=== PATIENT | female | born 1955 | race Caucasian/White ===

== ENCOUNTER → 2017-05-22 | Outpatient (CLI) | payer OTHER | END | disposition home or self-care (01) | LOC: C.PAPS 13:29 | PROVIDERS: ATTEND Obstetrics & Gynecology | DX: N87.0 Mild cervical dysplasia (principal); N95.2 Postmenopausal atrophic vaginitis ==

== ENCOUNTER 2021-09-16 09:27 | Inpatient (IN) ==
[2021-09-16] MEDS ORDERED: CEFEPIME 2,000 MG/20 ML VIAL IV STA (09:50)
--- NOTE | 2021-09-16 09:56 | Emergency Department Note ---
History of Present Illness General Chief complaint: GI Assessment Stated complaint: ILLNESS Time Seen by Provider: 09/16/21 09:43 History of Present Illness 66-year-old female presents to the ED with a chief complaint of generalized weakness and fatigue. Her symptoms started on Monday evening. She had some di arrhea this morning. The patient reports only 1 episode of diarrhea. She states that her body feels tired and fatigued and achy. That is the symptom that bothers her the most. She took some Tylenol at 3 AM. She does report that some nephews had influenza A recently. Denies a cough or upper respiratory symptoms denies urinary symptoms. No abdominal pains. No shortness of breath. No additional complaints. EMS found her to have a fever of 101.9. Here it is 37.9. EMS did give some Zofran. No additional complaints this time. Home Medications Medication Instructions Recorded Confirmed Type aspirin 81 mg tablet,delayed 81 mg PO QAM 10/29/20 09/16/21 History release azelastine 137 mcg (0.1 %) nasal 1 spray INTRANASAL BID 10/29/20 09/16/21 History spray aerosol cetirizine 10 mg tablet 10 mg PO QAM 10/29/20 09/16/21 History felodipine 5 mg tablet,extended 5 mg PO QAM 10/29/20 09/16/21 History release 24 hr fluoxetine 40 mg capsule 40 mg PO QAM 10/29/20 09/16/21 History fluticasone propionate 50 1 - 2 spray INTRANASAL DAILY 10/29/20 09/16/21 History mcg/actuation nasal spray,suspension metoprolol succinate 50 mg 50 mg PO QAM 10/29/20 09/16/21 History tablet,extended release 24 hr pantoprazole 40 mg tablet,delayed 40 mg PO BID 10/29/20 09/16/21 History release (Protonix) acetaminophen 500 mg tablet 1,000 mg PO Q6H PRN 09/16/21 09/16/21 History (Tylenol Extra Strength) atorvastatin 40 mg tablet 40 mg PO DAILY 09/16/21 09/16/21 History conjugated estrogens 0.625 mg/gram 1 applic VAGINAL [id number] 09/16/21 09/16/21 History vaginal cream (Premarin) metformin 1,000 mg tablet 1,000 mg PO BID 09/16/21 09/16/21 History montelukast 10 mg tablet 10 mg PO DAILY 09/16/21 09/16/21 History Allergies Allergy/AdvReac Type Severity Reaction Status Date / Time lisinopril Allergy Intermediate Cough Verified 09/16/21 11:51 morphine Allergy Intermediate Rash Verified 09/16/21 11:51 Sulfa (Sulfonamide Allergy Intermediate Rash Verified 09/16/21 11:51 Antibiotics) Tetracyclines Allergy Intermediate Gastrointestinal Verified 09/16/21 11:51 Upset Past Med/Surg History Medical History Anxiety Arthritis Cardiac murmur dx age 12 GERD (gastroesophageal reflux disease) Hyperlipidemia Hypertension Seasonal allergies Surgical History H/O basal cell carcinoma excision nose H/O section x1 H/O exploratory laparotomy H/O LEEP History of carpal tunnel release bilat History of cataract surgery History of colonoscopy History of esophagogastroduodenoscopy (EGD) History of hysterectomy History of tooth extraction S/P tonsillectomy and adenoidectomy Status post trigger finger release x3 Family History Aunt Colon cancer Mother Diabetes Social History Smoking Status: Never smoker Second Hand Exposure: No; Hx Alcohol Use: No Hx Substance Use: No Preferred Language: Slovak Communication Ability: Effective Director Of Investigations Required: No Beliefs That Will Affect Care: None Current Living Situation: Alone Feels Safe at Home: Yes Assistive Devices: Glasses Review of Systems A total of 10 systems reviewed and were otherwise negative Physical Exam Vital Signs Vital Signs - 24 hr 09/16/21 09:36 09/16/21 09:42 09/16/21 09:45 Temperature 37.9 C H Temperature Source Oral Pulse Rate 126 H 126 H 127 H Pulse Rate [Apical] Pulse Rate from SpO2 Sensor 126 H Respiratory Rate 32 H 43 H 40 H Respiratory Effort / Characteristics Non-Labored Respiratory Depth Normal Respiratory Pattern Blood Pressure 144/69 H Blood Pressure [Right Arm] Blood Pressure Mean 94 Blood Pressure Mean [Right Arm] Pulse Oximetry 91 93 Oxygen Delivery Method Room Air Oxygen Flow Rate Sepsis Recent Fever Within 48 Hours Yes Sepsis New/Unexplained Change in Mental Status No Sepsis Action Taken by Nursing No Action Required 09/16/21 09:50 09/16/21 10:00 09/16/21 10:05 Temperature Temperature Source Pulse Rate 129 H Pulse Rate [Apical] 133 H Pulse Rate from SpO2 Sensor Respiratory Rate 30 H 30 H 31 H Respiratory Effort / Characteristics Non-Labored Spontaneous Labored Non-Labored Respiratory Depth Normal Respiratory Pattern Tachypnea Blood Pressure Blood Pressure [Right Arm] 147/71 H Blood Pressure Mean Blood Pressure Mean [Right Arm] 96 Pulse Oximetry 93 94 Oxygen Delivery Method Room Air Room Air Oxygen Flow Rate Sepsis Recent Fever Within 48 Hours Sepsis New/Unexplained Change in Mental Status Sepsis Action Taken by Nursing 09/16/21 10:13 09/16/21 10:15 09/16/21 10:20 Temperature Temperature Source Pulse Rate 131 H 131 H Pulse Rate [Apical] 138 H Pulse Rate from SpO2 Sensor 132 H 131 H Respiratory Rate 32 H 45 H Respiratory Effort / Characteristics Non-Labored Respiratory Depth Normal Respiratory Pattern Tachypnea Blood Pressure 147/71 H 138/71 Blood Pressure [Right Arm] 138/71 Blood Pressure Mean 96 93 Blood Pressure Mean [Right Arm] 93 Pulse Oximetry 93 94 89 L Oxygen Delivery Method Room Air Room Air Oxygen Flow Rate Sepsis Recent Fever Within 48 Hours Sepsis New/Unexplained Change in Mental Status Sepsis Action Taken by Nursing 09/16/21 10:30 09/16/21 10:45 09/16/21 10:46 Temperature Temperature Source Pulse Rate 138 H Pulse Rate [Apical] 133 H Pulse Rate from SpO2 Sensor 138 H 132 H 128 H Respiratory Rate 26 H 24 50 H Respiratory Effort / Characteristics Spontaneous Labored Respiratory Depth Respiratory Pattern Blood Pressure 136/69 69/52 L 121/67 Blood Pressure [Right Arm] 121/76 Blood Pressure Mean 91 57 85 Blood Pressure Mean [Right Arm] 91 Pulse Oximetry 91 92 94 Oxygen Delivery Method Nasal Cannula Nasal Cannula Oxygen Flow Rate 2 2 Sepsis Recent Fever Within 48 Hours Sepsis New/Unexplained Change in Mental Status Sepsis Action Taken by Nursing 09/16/21 10:50 09/16/21 11:00 09/16/21 11:10 Temperature Temperature Source Pulse Rate 135 H 136 H Pulse Rate [Apical] Pulse Rate from SpO2 Sensor 136 H 139 H Respiratory Rate 41 H 36 H Respiratory Effort / Characteristics Respiratory Depth Respiratory Pattern Blood Pressure 136/63 Blood Pressure [Right Arm] Blood Pressure Mean 87 Blood Pressure Mean [Right Arm] Pulse Oximetry 93 94 95 Oxygen Delivery Method Nasal Cannula Oxygen Flow Rate 3 Sepsis Recent Fever Within 48 Hours Sepsis New/Unexplained Change in Mental Status Sepsis Action Taken by Nursing 09/16/21 11:15 09/16/21 11:20 09/16/21 11:30 Temperature Temperature Source Pulse Rate 135 H 134 H 134 H Pulse Rate [Apical] Pulse Rate from SpO2 Sensor 135 H 133 H 133 H Respiratory Rate 26 H 25 H 27 H Respiratory Effort / Characteristics Respiratory Depth Respiratory Pattern Blood Pressure 135/70 129/69 Blood Pressure [Right Arm] Blood Pressure Mean 91 89 Blood Pressure Mean [Right Arm] Pulse Oximetry 95 93 93 Oxygen Delivery Method Oxygen Flow Rate Sepsis Recent Fever Within 48 Hours Sepsis New/Unexplained Change in Mental Status Sepsis Action Taken by Nursing 09/16/21 11:40 09/16/21 11:45 09/16/21 11:50 Temperature Temperature Source Pulse Rate 133 H 134 H 134 H Pulse Rate [Apical] Pulse Rate from SpO2 Sensor 134 H 134 H 134 H Respiratory Rate 50 H 46 H 47 H Respiratory Effort / Characteristics Respiratory Depth Respiratory Pattern Blood Pressure 133/67 Blood Pressure [Right Arm] Blood Pressure Mean 89 Blood Pressure Mean [Right Arm] Pulse Oximetry 95 93 93 Oxygen Delivery Method Oxygen Flow Rate Sepsis Recent Fever Within 48 Hours Sepsis New/Unexplained Change in Mental Status Sepsis Action Taken by Nursing 09/16/21 12:00 09/16/21 12:10 09/16/21 12:15 Temperature Temperature Source Pulse Rate 132 H 135 H 134 H Pulse Rate [Apical] Pulse Rate from SpO2 Sensor 133 H 136 H 134 H Respiratory Rate 44 H 32 H 54 H Respiratory Effort / Characteristics Respiratory Depth Respiratory Pattern Blood Pressure 125/65 136/75 Blood Pressure [Right Arm] Blood Pressure Mean 85 95 Blood Pressure Mean [Right Arm] Pulse Oximetry 93 92 93 Oxygen Delivery Method Oxygen Flow Rate Sepsis Recent Fever Within 48 Hours Sepsis New/Unexplained Change in Mental Status Sepsis Action Taken by Nursing 09/16/21 12:20 09/16/21 12:30 09/16/21 12:40 Temperature Temperature Source Pulse Rate 137 H 140 H 135 H Pulse Rate [Apical] Pulse Rate from SpO2 Sensor 134 H 140 H 135 H Respiratory Rate 45 H 59 H 56 H Respiratory Effort / Characteristics Respiratory Depth Respiratory Pattern Blood Pressure 132/78 Blood Pressure [Right Arm] Blood Pressure Mean 96 Blood Pressure Mean [Right Arm] Pulse Oximetry 93 91 92 Oxygen Delivery Method Oxygen Flow Rate Sepsis Recent Fever Within 48 Hours Sepsis New/Unexplained Change in Mental Status Sepsis Action Taken by Nursing 09/16/21 12:45 09/16/21 12:50 09/16/21 12:52 Temperature Temperature Source Pulse Rate 134 H 137 H 133 H Pulse Rate [Apical] Pulse Rate from SpO2 Sensor 135 H 137 H Respiratory Rate 42 H 33 H Respiratory Effort / Characteristics Respiratory Depth Respiratory Pattern Blood Pressure 106/62 106/62 Blood Pressure [Right Arm] Blood Pressure Mean 76 Blood Pressure Mean [Right Arm] Pulse Oximetry 93 92 Oxygen Delivery Method Oxygen Flow Rate Sepsis Recent Fever Within 48 Hours Sepsis New/Unexplained Change in Mental Status Sepsis Action Taken by Nursing 09/16/21 13:00 09/16/21 13:10 09/16/21 13:15 Temperature 39.2 C H Temperature Source Pulse Rate 114 H 122 H 124 H Pulse Rate [Apical] Pulse Rate from SpO2 Sensor 114 H 122 H 126 H Respiratory Rate 43 H 58 H 35 H Respiratory Effort / Characteristics Respiratory Depth Respiratory Pattern Blood Pressure 113/80 123/75 Blood Pressure [Right Arm] Blood Pressure Mean 91 91 Blood Pressure Mean [Right Arm] Pulse Oximetry 94 90 90 Oxygen Delivery Method Oxygen Flow Rate Sepsis Recent Fever Within 48 Hours Sepsis New/Unexplained Change in Mental Status Sepsis Action Taken by Nursing 09/16/21 13:20 09/16/21 13:30 09/16/21 13:48 Temperature Temperature Source Pulse Rate 127 H 128 H Pulse Rate [Apical] Pulse Rate from SpO2 Sensor 126 H 128 H Respiratory Rate 16 24 54 H Respiratory Effort / Characteristics Labored Other Respiratory Depth Respiratory Pattern Blood Pressure Blood Pressure [Right Arm] Blood Pressure Mean Blood Pressure Mean [Right Arm] Pulse Oximetry 90 88 L 90 Oxygen Delivery Method Nasal Cannula Oxygen Flow Rate 2 Sepsis Recent Fever Within 48 Hours Sepsis New/Unexplained Change in Mental Status Sepsis Action Taken by Nursing 09/16/21 13:50 09/16/21 14:00 09/16/21 14:10 Temperature Temperature Source Pulse Rate 125 H 126 H 125 H Pulse Rate [Apical] Pulse Rate from SpO2 Sensor 125 H 126 H 124 H Respiratory Rate 60 H 56 H 37 H Respiratory Effort / Characteristics Respiratory Depth Respiratory Pattern Blood Pressure 127/72 Blood Pressure [Right Arm] Blood Pressure Mean 90 Blood Pressure Mean [Right Arm] Pulse Oximetry 92 91 93 Oxygen Delivery Method Oxygen Flow Rate Sepsis Recent Fever Within 48 Hours Sepsis New/Unexplained Change in Mental Status Sepsis Action Taken by Nursing 09/16/21 14:15 09/16/21 14:20 Temperature Temperature Source Pulse Rate 125 H 123 H Pulse Rate [Apical] Pulse Rate from SpO2 Sensor 125 H 123 H Respiratory Rate 54 H 18 Respiratory Effort / Characteristics Respiratory Depth Respiratory Pattern Blood Pressure 108/57 L Blood Pressure [Right Arm] Blood Pressure Mean 74 Blood Pressure Mean [Right Arm] Pulse Oximetry 94 93 Oxygen Delivery Method Oxygen Flow Rate Sepsis Recent Fever Within 48 Hours Sepsis New/Unexplained Change in Mental Status Sepsis Action Taken by Nursing CONSTITUTIONAL/VITAL SIGNS: Reviewed / noted above. GENERAL: Non-toxic in appearance. INTEGUMENTARY: Warm, dry, and [place]. HEAD: Normocephalic. EYES: without scleral icterus or trauma. ENT/OROPHARYNX: clear and moist. LYMPHADENOPATHY/NECK: Is supple without lymphadenopathy or meningismus. RESPIRATORY: Clear to auscultation bilaterally. No increased work of breathing. CARDIOVASCULAR: Regular rate and rhythm. GI/ABDOMEN: Soft and nontender. No organomegaly or pulsatile mass. EXTREMITIES: Warm and well perfused. BACK: No CVA tenderness. NEUROLOGICAL: Intact without focal deficits. PSYCHIATRIC: normal affect. MUSCULOSKELETAL: Normally developed with good muscle tone. TRIAGE NURSING DOCUMENTATION REVIEWED. Course Administered Medications Vancomycin HCl 2,000 mg/ (Sodium Chloride) 540 mls @ 200 mls/hr IV NOW ONE Stop: 09/16/21 15:28 Last Admin: 09/16/21 14:33 Dose: 200 mls/hr Documented by: [id number] Potassium Chloride (K Robert / Wtr) 10 meq in 100 mls @ 100 mls/hr IV ONE ONE; Protocol Stop: 09/16/21 15:04 Last Admin: 09/16/21 14:33 Dose: 100 mls/hr Documented by: [id number] Discontinued Medications Aspirin (Aspirin Chew 324 Mg) 324 mg PO NOW STA Stop: 09/16/21 12:29 Last Admin: 09/16/21 12:53 Dose: 324 mg Documented by: [id number] Furosemide (Furosemide 40 Mg/4 Ml Vial) 40 mg IV ONE ONE Stop: 09/16/21 14:06 Last Admin: 09/16/21 14:34 Dose: 40 mg Documented by: [id number] Sodium Chloride (Nss 1000ml) 1,000 mls @ 999 mls/hr IV .Q1H1M NANCY Stop: 09/16/21 10:52 Last Infusion: 09/16/21 10:21 Dose: 0 mls/hr Documented by: [id number] Admin: 09/16/21 09:30 Dose: 999 mls/hr Documented by: [id number] Sodium Chloride (Nss 1000ml) 1,000 mls @ 999 mls/hr IV .Q1H1M NANCY Stop: 09/16/21 11:59 Last Infusion: 09/16/21 13:32 Dose: 0 mls/hr Documented by: [id number] Admin: 09/16/21 10:19 Dose: 999 mls/hr Documented by: [id number] Cefepime HCl (Maxipime) 2,000 mg in 20 mls @ 5 mls/min IV NOW STA; Protocol Stop: 09/16/21 09:53 Last Admin: 09/16/21 10:09 Dose: 5 mls/min Documented by: [id number] Ioversol (Optiray 320 125ml) 120 ml IV ONCE ONE Stop: 09/16/21 13:49 Last Admin: 09/16/21 13:48 Dose: 120 ml Documented by: [id number] Metoprolol Tartrate (Metoprolol Tartrate 1 Mg/Ml Vial) 5 mg IV NOW STA Stop: 09/16/21 12:29 Last Admin: 09/16/21 12:52 Dose: 5 mg Documented by: [id number] Potassium Chloride (Potassium Chloride 10 Meq Tabcr) 20 meq PO NOW STA Stop: 09/16/21 14:06 Last Admin: 09/16/21 14:34 Dose: 20 meq Documented by: [id number] Critical Care Time Critical Care Time: Yes Total Critical Care Time: 35 I have personally spent 30 minutes of critical care time in the direct management of this patient. This includes bedside care, interpretation of diagnostic studies, and testing, discussion with consultants, patient, and family members, and other required patient management activities. This 30 minutes is in excess of all separately billable procedures. Medical Decision Making Differential Diagnosis Differential includes viral illness, influenza, streptococcal pharyngitis, meningitis, pneumonia, sinusitis, UTI, pyelonephritis, otitis media. Medical Records Attestation: I reviewed the patient's medical records. Home Medications Current Medication List: was personally reviewed by me Laboratory Data Attestation: I reviewed the patient's lab results. Result diagrams: 09/16/21 09:30 09/16/21 09:30 Lab Results 09/16/21 09/16/21 09/16/21 Range/Units 09:30 09:30 09:30 WBC 11.54 H (4.8-10.8) K/uL RBC 4.49 (4.2-5.4) M/uL Hgb 12.4 (12.0-16.0) g/dL Hct 37.2 (37-47) % MCV 82.9 (80-100) fL MCH 27.6 (25-34) pg MCHC 33.3 (32-36) g/dL RDW Std Deviation 43.3 (36.4-46.3) fL RDW Coeff of [place] 14.1 (11.5-14.5) % Plt Count 181 (130-400) K/uL MPV 10.8 H (7.4-10.4) fL Immature Gran % (Auto) 0.2 % Neut % (Auto) 89.6 % Lymph % (Auto) 3.9 % [place] % (Auto) 6.2 % Eos % (Auto) 0.0 % Baso % (Auto) 0.1 % Neut # (Auto) 10.35 H (1.4-6.5) K/uL Lymph # (Auto) 0.45 L (1.2-3.4) K/uL [place] # (Auto) 0.71 H (0.11-0.59) K/uL Eos # (Auto) 0.00 (0-0.5) K/uL Baso # (Auto) 0.01 (0-0.2) K/uL Immature Gran # (Auto) 0.02 (0.00-0.02) K/uL PT 12.7 H (9.0-12.0) Seconds INR 1.2 H (0.9-1.1) APTT 28.2 (21.0-31.0) Seconds PTT Ratio 1.0 Sodium 131 L (136-145) mmol/L Potassium 3.0 L (3.5-5.1) mmol/L Chloride 97 L (98-107) mmol/L Carbon Dioxide 18 L (21-32) mmol/L Anion Gap 16 H (3-11) BUN 18 (6-23) mg/dl Creatinine 0.86 (0.6-1.2) mg/dl Est Cr Clr Drug Dosing 57.2 ml/min Est GFR ( Amer) 81.6 ml/min Est GFR (Non-Af Amer) 70.4 ml/min BUN/Creatinine Ratio 20.9 H (10-20) Glucose 208 H (70-99(Fasting)) mg/dl Lactate (0.4-2.0) mmol/L Calcium 9.1 (8.5-10.1) mg/dl Magnesium 1.3 L (1.7-2.4) mg/dl Total Bilirubin 1.0 (0.2-1.0) mg/dl AST 51 H (13-39) U/L ALT 39 (7-52) U/L Alkaline Phosphatase 72 (34-104) U/L Troponin I High Sens 1008.5 H* (0-14) pg/ml Total Protein 7.6 (6.0-8.3) gm/dl Albumin 4.1 (3.4-5.0) gm/dl Globulin 3.5 (2.5-4.0) gm/dl Albumin/Globulin Ratio 1.2 (0.9-2) Urine Color Urine Appearance (Clear) Urine pH (4.5-7.5) Ur Specific [place] (1.000-1.030) Urine Protein (Negative) Urine Glucose (UA) (Negative) Urine Ketones (Negative) Urine Blood (Negative) Urine Nitrite (Negative) Urine Bilirubin (Negative) Urine Urobilinogen (Negative) Ur Leukocyte Esterase (Negative) Urine WBC (Auto) (0-5) /hpf Urine RBC (Auto) (0-4) /hpf U Hyaline Cast (Auto) (0-5) /lpf U Epithel Cells (Auto) (0-5) /lpf Urine Bacteria (Auto) (Negative) Urine Yeast SARS-CoV-2 (PCR) (Negative) Influenza Type A (PCR) (Neg) Influenza Type B (PCR) (Neg) RSV (RT-PCR) (Neg) 09/16/21 09/16/21 09/16/21 Range/Units 09:52 10:09 12:00 WBC (4.8-10.8) K/uL RBC (4.2-5.4) M/uL Hgb (12.0-16.0) g/dL Hct (37-47) % MCV (80-100) fL MCH (25-34) pg MCHC (32-36) g/dL RDW Std Deviation (36.4-46.3) fL RDW Coeff of [place] (11.5-14.5) % Plt Count (130-400) K/uL MPV (7.4-10.4) fL Immature Gran % (Auto) % Neut % (Auto) % Lymph % (Auto) % [place] % (Auto) % Eos % (Auto) % Baso % (Auto) % Neut # (Auto) (1.4-6.5) K/uL Lymph # (Auto) (1.2-3.4) K/uL [place] # (Auto) (0.11-0.59) K/uL Eos # (Auto) (0-0.5) K/uL Baso # (Auto) (0-0.2) K/uL Immature Gran # (Auto) (0.00-0.02) K/uL PT (9.0-12.0) Seconds INR (0.9-1.1) APTT (21.0-31.0) Seconds PTT Ratio Sodium (136-145) mmol/L Potassium (3.5-5.1) mmol/L Chloride (98-107) mmol/L Carbon Dioxide (21-32) mmol/L Anion Gap (3-11) BUN (6-23) mg/dl Creatinine (0.6-1.2) mg/dl Est Cr Clr Drug Dosing ml/min Est GFR ( Amer) ml/min Est GFR (Non-Af Amer) ml/min BUN/Creatinine Ratio (10-20) Glucose (70-99(Fasting)) mg/dl Lactate 2.3 H* Cancelled (0.4-2.0) mmol/L Calcium (8.5-10.1) mg/dl Magnesium (1.7-2.4) mg/dl Total Bilirubin (0.2-1.0) mg/dl AST (13-39) U/L ALT (7-52) U/L Alkaline Phosphatase (34-104) U/L Troponin I High Sens (0-14) pg/ml Total Protein (6.0-8.3) gm/dl Albumin (3.4-5.0) gm/dl Globulin (2.5-4.0) gm/dl Albumin/Globulin Ratio (0.9-2) Urine Color Urine Appearance (Clear) Urine pH (4.5-7.5) Ur Specific [place] (1.000-1.030) Urine Protein (Negative) Urine Glucose (UA) (Negative) Urine Ketones (Negative) Urine Blood (Negative) Urine Nitrite (Negative) Urine Bilirubin (Negative) Urine Urobilinogen (Negative) Ur Leukocyte Esterase (Negative) Urine WBC (Auto) (0-5) /hpf Urine RBC (Auto) (0-4) /hpf U Hyaline Cast (Auto) (0-5) /lpf U Epithel Cells (Auto) (0-5) /lpf Urine Bacteria (Auto) (Negative) Urine Yeast SARS-CoV-2 (PCR) NEGATIVE (Negative) Influenza Type A (PCR) Negative (Neg) Influenza Type B (PCR) Negative (Neg) RSV (RT-PCR) Negative (Neg) 09/16/21 09/16/21 Range/Units 12:00 14:05 WBC (4.8-10.8) K/uL RBC (4.2-5.4) M/uL Hgb (12.0-16.0) g/dL Hct (37-47) % MCV (80-100) fL MCH (25-34) pg MCHC (32-36) g/dL RDW Std Deviation (36.4-46.3) fL RDW Coeff of [place] (11.5-14.5) % Plt Count (130-400) K/uL MPV (7.4-10.4) fL Immature Gran % (Auto) % Neut % (Auto) % Lymph % (Auto) % [place] % (Auto) % Eos % (Auto) % Baso % (Auto) % Neut # (Auto) (1.4-6.5) K/uL Lymph # (Auto) (1.2-3.4) K/uL [place] # (Auto) (0.11-0.59) K/uL Eos # (Auto) (0-0.5) K/uL Baso # (Auto) (0-0.2) K/uL Immature Gran # (Auto) (0.00-0.02) K/uL PT (9.0-12.0) Seconds INR (0.9-1.1) APTT (21.0-31.0) Seconds PTT Ratio Sodium (136-145) mmol/L Potassium (3.5-5.1) mmol/L Chloride (98-107) mmol/L Carbon Dioxide (21-32) mmol/L Anion Gap (3-11) BUN (6-23) mg/dl Creatinine (0.6-1.2) mg/dl Est Cr Clr Drug Dosing ml/min Est GFR ( Amer) ml/min Est GFR (Non-Af Amer) ml/min BUN/Creatinine Ratio (10-20) Glucose (70-99(Fasting)) mg/dl Lactate 1.4 (0.4-2.0) mmol/L Calcium (8.5-10.1) mg/dl Magnesium (1.7-2.4) mg/dl Total Bilirubin (0.2-1.0) mg/dl AST (13-39) U/L ALT (7-52) U/L Alkaline Phosphatase (34-104) U/L Troponin I High Sens (0-14) pg/ml Total Protein (6.0-8.3) gm/dl Albumin (3.4-5.0) gm/dl Globulin (2.5-4.0) gm/dl Albumin/Globulin Ratio (0.9-2) Urine Color Dark Yellow Urine Appearance Cloudy A (Clear) Urine pH 5.0 (4.5-7.5) Ur Specific [place] 1.028 (1.000-1.030) Urine Protein 3+ H (Negative) Urine Glucose (UA) Trace H (Negative) Urine Ketones 1+ H (Negative) Urine Blood 3+ H (Negative) Urine Nitrite Negative (Negative) Urine Bilirubin Negative (Negative) Urine Urobilinogen Negative (Negative) Ur Leukocyte Esterase 1+ H (Negative) Urine WBC (Auto) >30 H (0-5) /hpf Urine RBC (Auto) 0-4 (0-4) /hpf U Hyaline Cast (Auto) 1-5 (0-5) /lpf U Epithel Cells (Auto) 20-30 H (0-5) /lpf Urine Bacteria (Auto) 1+ H (Negative) Urine Yeast Not Reportable SARS-CoV-2 (PCR) (Negative) Influenza Type A (PCR) (Neg) Influenza Type B (PCR) (Neg) RSV (RT-PCR) (Neg) Imaging Data Radiologist's Impression: Chest X-Ray 09/16/21 09:50 SINGLE VIEW CHEST CLINICAL HISTORY: Sepsis. FINDINGS: An AP, portable, upright chest radiograph is obtained. No prior studies are available for comparison at the time of dictation. The heart is enlarged noting atherosclerotic calcification of the thoracic aorta. There is mild pulmonary vascular congestion. Scarring/atelectasis is noted at the lung bases. No airspace consolidation or large pleural effusion is identified. No pneumothorax is seen. The skeletal structures are osteopenic. The bony thorax is grossly intact. IMPRESSION: Cardiomegaly with mild pulmonary vascular congestion. ACT 112: Negative or not required by law. Electronically signed by: Vikas Sarkar M.D. 09/16/2021 10:13 AM Abdomen/Pelvis CT 09/16/21 12:28 CT SCAN OF THE ABDOMEN AND PELVIS WITH IV CONTRAST CLINICAL HISTORY: Change in mental status. Tachycardia. COMPARISON STUDY: No priors. TECHNIQUE: Following the IV administration of 120 cc of Optiray 320, CT scan of the abdomen and pelvis is performed from the lung bases to the proximal femora. Images are reviewed in the axial, sagittal, and coronal planes. IV contrast was administered without complication. A dose lowering technique was utilized adhering to the principles of ALARA. There is streak artifact from the right arm which could not be elevated above the abdomen. There is also motion artifact. CT DOSE: 1960.68 mGy.cm FINDINGS: Lung bases: The heart is enlarged and without pericardial effusion. There are trace pleural effusions. Intralobular septal thickening and patchy opacities are present at both lung bases. Liver: The contrast-enhanced liver is enlarged, measuring 20.5 cm in length and demonstrates heterogeneous in attenuation indicating steatosis. Nodularity of the hepatic surface contour suggests early morphological change of cirrhosis. There is no intrahepatic biliary ductal dilatation. The hepatic veins and portal veins are patent. Gallbladder: Unremarkable. Spleen: Normal in size and attenuation. Pancreas: Mildly atrophic and grossly unremarkable. Adrenal glands: Unremarkable. Kidneys: The contrast enhanced kidneys are normal in size and without hydronephrosis. The kidneys enhance symmetrically. Abdominal vasculature: The abdominal aorta is normal in course and caliber noting advanced atherosclerotic calcification. Bowel: There are scattered colonic diverticula without CT evidence of acute diverticulitis. There is no bowel obstruction. The appendix is well-visualized and normal. Peritoneum: There is no intraperitoneal free air or abdominal ascites. There is a small fat-containing umbilical hernia. Lymphadenopathy: None. Pelvic viscera: The bladder is largely decompressed around a Haddad catheter. Foci of gas in the bladder lumen are nonspecific and likely related to instrumentation. The uterus is surgically absent. No adnexal lesion is identified. Skeletal structures: The skeletal structures are osteopenic. The skeletal structures are osteopenic. There is mild lumbosacral spondylosis. No lytic or blastic lesions are seen. IMPRESSION: 1. Cardiomegaly with evidence of congestive failure. 2. Airspace opacities in the lower lobe likely represent pulmonary edema. Correlate clinically for evidence of a superimposed infectious/inflammatory pneumonitis. 3. Trace pleural effusions. 4. No acute infectious or inflammatory findings are identified in the abdomen or pelvis. 5. The liver is enlarged and steatotic. Nodularity of the surface contour suggests early morphologic change of cirrhosis. 6. Scattered colonic diverticula without CT evidence of acute diverticulitis. 7. Additional findings as above. ACT 112: Negative or not required by law. Electronically signed by: Vikas Sarkar M.D. 09/16/2021 1:58 PM Chest CTA 09/16/21 12:28 CT ANGIOGRAPHY OF THE CHEST, PULMONARY EMBOLUS PROTOCOL CLINICAL HISTORY: Shortness of breath. Confusion. COMPARISON STUDY: Chest radiograph performed earlier today. TECHNIQUE: Following IV administration of 120 mL of Optiray, helical axial images of the chest were obtained utilizing the pulmonary embolus protocol. Maximal intensity projections and sagittal and coronal reformats were viewed on an independent 3D workstation. IV contrast was administered without complication. Automated exposure control was utilized for the study. A dose lowering technique was utilized adhering to the principles of ALARA. FINDINGS: No pulmonary emboli are identified although the segmental and subsegmental pulmonary arteries are suboptimally assessed due to respiratory motion. There is no thoracic aortic dissection. Moderate cardiomegaly is noted. There is extensive mitral annular calcification. Mild to moderate coronary artery calcification is present. Central pulmonary arteries are mildly dilated. Main pulmonary artery measures 3.6 cm in caliber. Mildly enlarged mediastinal and bilateral hilar lymph nodes are present. Index right paratracheal lymph node measures 1.4 x 1.4 cm. There are trace bilateral pleural effusions. No pneumothorax is present. Diffuse interlobular septal thickening is present. In addition, there are nodular and groundglass opacities throughout the lungs. Central airways are patent. Lungs are suboptimally assessed due to respiratory motion. No acute fracture or suspicious lesion within the visualized bony thorax. CT of the abdomen and pelvis will be reported separately. IMPRESSION: 1. No pulmonary emboli identified although segmental and subsegmental pulmonary arteries suboptimally assessed due to respiratory motion. 2. Cardiomegaly. Moderate interstitial pulmonary edema. Nodular and groundglass opacities within the lungs likely reflect alveolar pulmonary edema. Trace bilateral pleural effusions. 3. Dilatation of the central pulmonary arteries which raises the possibility of pulmonary arterial hypertension. 4. Mildly enlarged mediastinal and bilateral lymph nodes which may be related to pulmonary edema. ACT 112: Negative or not required by law. Electronically signed by: Dani Briceño M.D. 09/16/2021 1:[address] 09/16/21 12:28 CT head/brain wo con CLINICAL HISTORY: 66 years-old Female with confusion. Acutely altered mental status TECHNIQUE: Multiple axial CT images of the head were obtained without contrast. A dose lowering technique was utilized adhering to the principles of ALARA. COMPARISON: None. FINDINGS: No acute intracranial hemorrhage, midline shift, intracranial mass, hydrocephalus, territorial ischemia or abnormal extra-axial collection. Mild white matter hypodensities are suggestive of chronic microvascular ischemic disease. The calvarium is intact. Prior bilateral lens replacement. The paranasal sinuse s, mastoid air cells, and middle ear cavities are clear. IMPRESSION: No acute intracranial abnormality. ACT 112: Negative or not required by law. The above report was generated using voice recognition software. It may contain grammatical, syntax or spelling errors. Electronically signed by: Ken Harrington M.D. 09/16/2021 1:44 PM ECG Data Attestation: I personally reviewed and interpreted this ECG as follows: Additional Comments: Twelve-lead EKG: Per my interpretation shows a sinus tach at a rate of 126. No ST elevation. No PVCs. Normal QTC. Twelve-lead EKG #2: Per my interpretation shows a sinus tachycardia at a rate of 140. No ST elevation. No PVCs. Normal QTC. MDM Narrative 66-year-old female presents with fever, generalized body aches and fatigue as her primary symptoms. Little diarrhea this morning. Recent exposure to family members with influenza A. Test results showed a twelve-lead EKG with sinus tach at a rate of 126 without acute ischemic changes. This was repeated and her heart rate increased to 140 without ischemic changes. The white blood cell count was slightly elevated. Lactic acid is slightly elevated. Troponin was 1008. Potassium was 3. Glucose is 2 8. Magnesium was 1.3. Chest x-ray showed some vascular congestion. CT scan of the chest shows some moderate pulmonary edema this was after the patient received 2 L normal saline IV for sepsis protocol. There was no pneumonia on the CT scan. No pulmonary embolus. CT scan of the abdomen pelvis did not show acute infectious process or acute ab normality. CT scan of the brain was negative for acute disease. The patient was initially evaluated for fever and tachycardia. She was given 2 L of fluid which likely worsens some pulmonary edema. She was empirically given IV cefepime and vancomycin for her fever. She was given oral and IV potassium for her hypokalemia. Because of the congestive heart failure that ensued with pulmonary edema after IV hydration, she was given IV Lasix 40 mg and also BiPAP. She was given aspirin p.o. for her elevated troponin. Her elevated troponin is likely related to demand ischemia. There was no source for her skin infection. The exact cause of her fever is unclear. She will be seen by the hospitalist for further inpatient management. Impression & Plan Fever, Congestive heart failure, Generalized muscle weakness, Elevated troponi n, Acute hypokalemia, Acute hyperglycemia, Hypomagnesemia Discharge Plan Visit Data Chief Complaint: GI Assessment Stated Complaint: ILLNESS ED Provider: Juan Rivera Discharge Problem: Fever, Congestive heart failure, Generalized muscle weakness, Elevated troponin, Acute hypokalemia, Acute hyperglycemia, Hypomagnesemia Patient Disposition: Being Evaluated by Hospitalist Forms Stand Alone Forms: [facility] Prescriptions Prescriptions: No Action fluoxetine 40 mg Capsule 40 mg PO QAM RF: 0 cetirizine 10 mg Tablet 10 mg PO QAM RF: 0 metoprolol succinate 50 mg Tablet Extended Release 24 Hr 50 mg PO QAM RF: 0 felodipine 5 mg Tablet Extended Release 24 Hr 5 mg PO QAM RF: 0 pantoprazole [Protonix] 40 mg Tablet,Delayed Release (Dr/Ec) 40 mg PO BID RF: 0 azelastine 137 mcg (0.1 %) Aerosol,[place] 1 spray INTRANASAL BID RF: 0 fluticasone propionate 50 mcg/actuation [place],Suspension 1 - 2 spray INTRANASAL DAILY RF: 0 aspirin 81 mg Tablet,Delayed Release (Dr/Ec) 81 mg PO QAM RF: 0 acetaminophen [Tylenol Extra Strength] 500 mg Tablet 1,000 mg PO Q6H PRN (Reason: Headache or pain) RF: 0 atorvastatin 40 mg tablet 40 mg PO DAILY RF: 0 Premarin 0.625 mg/gram cream 1 applic vaginal 2XWK RF: 0 metformin 1,000 mg tablet 1,000 mg PO BID RF: 0 montelukast 10 mg tablet 10 mg PO DAILY RF: 0 Referrals Referrals: Xi Herr DO [Primary Care Provider] -
[2021-09-16] MEDS ORDERED: SODIUM CHLORIDE 0.9% 1000ML 1,000 ML IV SCH ×2 (10:00→11:00)
[2021-09-16 10:06] LABS: Basophils # (auto) 0.01 K/uL (0-0.2); Basophils % (auto) 0.1 %; Hematocrit (blood only) 37.2 % (37-47); Hemoglobin 12.4 g/dL (12.0-16.0); Immature Granulocytes # (auto) 0.02 K/uL (0.00-0.02); Immature Granulocytes % (auto) 0.2 %; Lymphocytes # (auto) 0.45 K/uL (1.2-3.4); Lymphocytes % (auto) 3.9 %; Mean Corpuscular Hemoglobin 27.6 pg (25-34); Mean Corpuscular Hgb Conc 33.3 g/dL (32-36); Mean Corpuscular Volume 82.9 fL (80-100); Mean Platelet Volume 10.8 fL (7.4-10.4); Monocytes # (auto) 0.71 K/uL (0.11-0.59); Monocytes % (auto) 6.2 %; Neutrophils # (auto) 10.35 K/uL (1.4-6.5); Neutrophils % (auto) 89.6 %; Platelet Count 181 K/uL (130-400); RDW Coefficient of Variation 14.1 % (11.5-14.5); RDW Standard Deviation 43.3 fL (36.4-46.3); Red Blood Count 4.49 M/uL (4.2-5.4); White Blood Count 11.54 K/uL (4.8-10.8)
--- NOTE | 2021-09-16 10:14 | XRay Report ---
SINGLE VIEW CHEST CLINICAL HISTORY: Sepsis. FINDINGS: An AP, portable, upright chest radiograph is obtained. No prior studies are available for c omparison at the time of dictation. The heart is enlarged noting atherosclerotic calcification of th e thoracic aorta. There is mild pulmonary vascular congestion. Scarring/atelectasis is noted at the l stacey bases. No airspace consolidation or large pleural effusion is identified. No pneumothorax is seen . The skeletal structures are osteopenic. The bony thorax is grossly intact. IMPRESSION: Cardiomegaly with mild pulmonary vascular congestion. ACT 112: Negative or not required by law. Electronically signed by: Vikas Sarkar M.D. 09/16/2021 10:13 AM
[2021-09-16 10:25] LABS: INR 1.2 (0.9-1.1); Partial Thromboplastin Time 28.2 Seconds (21.0-31.0); Prothrombin Time 12.7 Seconds (9.0-12.0)
[2021-09-16 10:38] LABS: Albumin Globulin Ratio 1.2 (0.9-2); Albumin Level 4.1 gm/dl (3.4-5.0); BUN Creatinine Ratio 20.9 (10-20); Calcium 9.1 mg/dl (8.5-10.1); Creatinine Clr Calc Pharmacy 57.2 ml/min; Est GFR (African American) 81.6 ml/min; Est GFR (Non-African American) 70.4 ml/min; Globulin 3.5 gm/dl (2.5-4.0); Magnesium 1.3 mg/dl (1.7-2.4); Total Protein 7.6 gm/dl (6.0-8.3)
[2021-09-16 10:42] LABS: Troponin I High Sensitivity 1008.5 pg/ml (0-14)
[2021-09-16 12:07] LABS: Influenza A virus by PCR Negative (Neg); Influenza B virus by PCR Negative (Neg); RSV by PCR Negative (Neg); SARS CoV2 RNA(COVID-19) InHosp NEGATIVE (Negative)
[2021-09-16] MEDS ORDERED: METOPROLOL TARTRATE 1 MG/ML VIAL IV STA (12:28)
[2021-09-16] MEDS ORDERED: ASPIRIN CHEW 324 MG PO STA (12:28)
[2021-09-16 12:47] LABS: Appearance Urine Cloudy (Clear); Bilirubin Urine Negative (Negative); Blood Urine 3+ (Negative); Color Urine Dark Yellow; Epithelial Cell Urine Auto 20-30 /lpf (0-5); Glucose Urine UA Trace (Negative); Ketones Urine 1+ (Negative); Leukocyte Esterase Urine 1+ (Negative); Nitrite Urine Negative (Negative); Protein Urine 3+ (Negative); RBC Urine Automated 0-4 /hpf (0-4); Specific Gravity Urine 1.028 (1.000-1.030); Urobilinogen Urine Negative (Negative); WBC Urine Automated >30 /hpf (0-5)
[2021-09-16] MEDS ORDERED: VANCOMYCIN HCL 2,000 MG in SODIUM CHLORIDE 0.9% 500 ML IV ONE (12:47)
[2021-09-16] MEDS ORDERED: VANCOMYCIN CONSULT ACTIVE PRN (12:47)
[2021-09-16 13:39] LABS: Bacteria Urine Automated 1+ (Negative)
--- NOTE | 2021-09-16 13:47 | CT Scan Report ---
CT head/brain wo con CLINICAL HISTORY: 66 years-old Female with confusion. Acutely altered mental status TECHNIQUE: Multiple axial CT images of the head were obtained without contrast. A dose lowering tech nique was utilized adhering to the principles of ALARA. COMPARISON: None. FINDINGS: No acute intracranial hemorrhage, midline shift, intracranial mass, hydrocephalus, territorial ischem ia or abnormal extra-axial collection. Mild white matter hypodensities are suggestive of chronic micr ovascular ischemic disease. The calvarium is intact. Prior bilateral lens replacement. The paranasal sinuses, mastoid air cells, and middle ear cavities are clear. IMPRESSION: No acute intracranial abnormality. ACT 112: Negative or not required by law. The above report was generated using voice recognition software. It may contain grammatical, syntax o r spelling errors. Electronically signed by: Ken Harrington M.D. 09/16/2021 1:44 PM
[2021-09-16] MEDS ORDERED: OPTIRAY 320 125ml IV ONE (13:48)
--- NOTE | 2021-09-16 13:56 | CT Scan Report ---
CT ANGIOGRAPHY OF THE CHEST, PULMONARY EMBOLUS PROTOCOL CLINICAL HISTORY: Shortness of breath. Confusion. COMPARISON STUDY: Chest radiograph performed earlier today. TECHNIQUE: Following IV administration of 120 mL of Optiray, helical axial images of the chest were o btained utilizing the pulmonary embolus protocol. Maximal intensity projections and sagittal and cor onal reformats were viewed on an independent 3D workstation. IV contrast was administered without co mplication. Automated exposure control was utilized for the study. A dose lowering technique was ut ilized adhering to the principles of ALARA. FINDINGS: No pulmonary emboli are identified although the segmental and subsegmental pulmonary arter ies are suboptimally assessed due to respiratory motion. There is no thoracic aortic dissection. Mode rate cardiomegaly is noted. There is extensive mitral annular calcification. Mild to moderate coronar y artery calcification is present. Central pulmonary arteries are mildly dilated. Main pulmonary kee ry measures 3.6 cm in caliber. Mildly enlarged mediastinal and bilateral hilar lymph nodes are presen t. Index right paratracheal lymph node measures 1.4 x 1.4 cm. There are trace bilateral pleural effus ions. No pneumothorax is present. Diffuse interlobular septal thickening is present. In addition, the re are nodular and groundglass opacities throughout the lungs. Central airways are patent. Lungs are suboptimally assessed due to respiratory motion. No acute fracture or suspicious lesion within the vi sualized bony thorax. CT of the abdomen and pelvis will be reported separately. IMPRESSION: 1. No pulmonary emboli identified although segmental and subsegmental pulmonary arteries suboptimally assessed due to respiratory motion. 2. Cardiomegaly. Moderate interstitial pulmonary edema. Nodular and groundglass opacities within the lungs likely reflect alveolar pulmonary edema. Trace bilateral pleural effusions. 3. Dilatation of the central pulmonary arteries which raises the possibility of pulmonary arterial hy pertension. 4. Mildly enlarged mediastinal and bilateral lymph nodes which may be related to pulmonary edema. ACT 112: Negative or not required by law. Electronically signed by: Dani Briceño M.D. 09/16/2021 1:55 PM
--- NOTE | 2021-09-16 13:59 | CT Scan Report ---
CT SCAN OF THE ABDOMEN AND PELVIS WITH IV CONTRAST CLINICAL HISTORY: Change in mental status. Tachycardia. COMPARISON STUDY: No priors. TECHNIQUE: Following the IV administration of 120 cc of Optiray 320, CT scan of the abdomen and pelv is is performed from the lung bases to the proximal femora. Images are reviewed in the axial, sagitta l, and coronal planes. IV contrast was administered without complication. A dose lowering technique w as utilized adhering to the principles of ALARA. There is streak artifact from the right arm which co uld not be elevated above the abdomen. There is also motion artifact. CT DOSE: 1960.68 mGy.cm FINDINGS: Lung bases: The heart is enlarged and without pericardial effusion. There are trace pleural effusions . Intralobular septal thickening and patchy opacities are present at both lung bases. Liver: The contrast-enhanced liver is enlarged, measuring 20.5 cm in length and demonstrates heteroge neous in attenuation indicating steatosis. Nodularity of the hepatic surface contour suggests early m orphological change of cirrhosis. There is no intrahepatic biliary ductal dilatation. The hepatic vei ns and portal veins are patent. Gallbladder: Unremarkable. Spleen: Normal in size and attenuation. Pancreas: Mildly atrophic and grossly unremarkable. Adrenal glands: Unremarkable. Kidneys: The contrast enhanced kidneys are normal in size and without hydronephrosis. The kidneys enh ance symmetrically. Abdominal vasculature: The abdominal aorta is normal in course and caliber noting advanced atheroscle rotic calcification. Bowel: There are scattered colonic diverticula without CT evidence of acute diverticulitis. There is no bowel obstruction. The appendix is well-visualized and normal. Peritoneum: There is no intraperitoneal free air or abdominal ascites. There is a small fat-containin g umbilical hernia. Lymphadenopathy: None. Pelvic viscera: The bladder is largely decompressed around a Haddad catheter. Foci of gas in the bladd er lumen are nonspecific and likely related to instrumentation. The uterus is surgically absent. No a dnexal lesion is identified. Skeletal structures: The skeletal structures are osteopenic. The skeletal structures are osteopenic. There is mild lumbosacral spondylosis. No lytic or blastic lesions are seen. IMPRESSION: 1. Cardiomegaly with evidence of congestive failure. 2. Airspace opacities in the lower lobe likely represent pulmonary edema. Correlate clinically for ev idence of a superimposed infectious/inflammatory pneumonitis. 3. Trace pleural effusions. 4. No acute infectious or inflammatory findings are identified in the abdomen or pelvis. 5. The liver is enlarged and steatotic. Nodularity of the surface contour suggests early morphologic change of cirrhosis. 6. Scattered colonic diverticula without CT evidence of acute diverticulitis. 7. Additional findings as above. ACT 112: Negative or not required by law. Electronically signed by: Vikas Sarkar M.D. 09/16/2021 1:58 PM
[2021-09-16] MEDS ORDERED: POTASSIUM CHLORIDE 10 MEQ TABCR PO STA (14:05)
[2021-09-16] MEDS ORDERED: FUROSEMIDE 40 MG/4 ML VIAL IV ONE (14:05)
[2021-09-16] MEDS ORDERED: POTASSIUM CHLORIDE / WTR 10 MEQ/100 ML PLCT IV ONE (14:05)
--- NOTE | 2021-09-16 14:33 | Electrocardiogram Report ---
Test Reason : Blood Pressure : / mmHG Vent. Rate : 126 BPM Atrial Rate : 126 BPM P-R Int : 138 ms QRS Dur : 080 ms QT Int : 308 ms P-R-T Axes : 073 044 051 degrees QTc Int : 446 ms Poor data quality, interpretation may be adversely affected Sinus tachycardia Possible Left atrial enlargement Borderline ECG No previous ECGs available Confirmed by Jeffy Olmstead ([id number]) on 09/16/2021 2:33:07 PM Referred By: Confirmed By:Jeffy Olmstead
[2021-09-16 15:15] LABS: Procalcitonin 7.53 ng/ml (0-0.5)
[2021-09-16 15:20] LABS: Lyme Ab IgG w/WB Rflx Negative (Negative)
[2021-09-16 15:21] LABS: Lyme Ab IgM w/WB Rflx Negative (Negative)
[2021-09-16 15:29] LABS: iSTAT Arterial Blood Gas HCO3 19 meg/L (19-24); iSTAT Arterial Blood Gas pCO2 27 mmHg (35-46); iSTAT Arterial Blood Gas pH 7.47 (7.35-7.45); iSTAT Arterial Blood Gas pO2 104 mmHg (80-95); iSTAT Carbon Dioxide 20 mmol/L (24-31); iSTAT Hematocrit 34 % (37-47); iSTAT Hemoglobin 11.6 g/dl (12.0-16.0); iSTAT Sodium 136 mmol/L (135-144)
--- NOTE | 2021-09-16 15:31 | History & Physical Report ---
Date of Service September 16, 2021 Assessment & Plan (1) SIRS (systemic inflammatory response syndrome): (2) Pulmonary edema: (3) Hypoxia: (4) Respiratory alkalosis: (5) Elevated troponin: (6) Generalized muscle weakness: (7) Hypomagnesemia: (8) Hypokalemia: (9) T2DM (type 2 diabetes mellitus): (10) Hypertension: Plan: This is a 66-year-old female who has significant past medical history of T2DM, HTN, HLD, GERD, fatty liver who presents to ED secondary to fever and weakness x2 days. Pt meets SIRS Criteria 2/2 to elevated temperature and tachycardia Pt also likely to have tachycardia due to missing her last two days of metoprolol No clear source of infection at this time, ? Urine vs Viral Blood and urine cultures pending She did receive broad spectrum vanco and cefepime in ED She received 2 L of IVF and now appears to be in Pulmonary edema, previous echos showed preserved function SIRS with likely Sepsis 2/2 to possible UTI vs Viral syndrome admit to PCU await blood and urine cultures, anaplasma pending continue IV vanco/cefepime pt with 2 days of myalgias, N, dry heaves and 1 episode of diarrhea obtain stool culture if able Hypoxia Respiratory alkalosis 2/2 to hyperventilation and pulm edema Acute Pulmonary edema Volume overload received 40mg IV lasix in ED and bipap started [place] in place, will monitor I and O and possibly repeat a dose later this evening echo ordered cardiology consulted [id number] Elevated troponin likely demand ischemia in setting of underlying illness/pulm edema trend trops, echo cardiology consulted, Dr. Mtz will hold off an IV heparin for now, pt is not having CP, ECG w/o ischemic change Generalized weakness will need PT/OT when more medically stable Hypomagnesemia/Hypokalemia replete T2DM hold metformin Lantus/NovoLog per protocol Last A1c 6.4 on 09/01/2021 HTN hold felodipine for now continue metoprolol with dose given now due to missed dose last 2 days DVT ppx: SQ Lovenox Dispo: PCU FULL CODE PCP: [facility] Pt was seen and examined in collaboration with Dr. Aguirre, please see addendum History of Present Illness Chief Complaint: Fever and weakness x2 days. Primary Care Provider: Xi Herr, DO This is a 66-year-old female who has significant past medical history of T2DM, HTN, HLD, GERD, fatty liver who presents to ED secondary to fever and weakness x2 days. She was in her normal state of health until 2 days ago. She recently had a follow-up with her PCP and everything was going as normal. On Monday she developed flulike symptoms with myalgias, generalized malaise, fever with T-max of 101, nausea and dry heaves. Overall she had poor appetite. She denies any sick contacts. Her granddaughter did have influenza but this was several weeks ago. This morning she states that she, "rolled out of bed." She denies hitting her head or losing consciousness. She was able to get herself up into the bathroom. She did have 1 episode of diarrhea today. When her son came to check on her she was having difficulty formulating sentences, not making sense and was too weak to get off of the toilet. EMS was summoned. Per report patient was febrile in route. She was also febrile in ED. When she presented to ED she was febrile and tachycardic and therefore sepsis pathway was initiated. She received 2 L of IV fluid bolus while in ED as well as broad-spectrum antibiotics with vancomycin and cefepime. Initial lab work revealed WBC 11.54, H&H 12.4 and 37.2, sodium 131, K3.0, CO2 18, anion gap 16, BUN/creatinine 18 and 0.86 respectively, glucose 208, lactate 2.3, mag 1.3, troponin thousand and procalcitonin 7.53. Her initial urinalysis does have +1 leukocyte esterase and bacteria. She was negative for influenza and SARS-CoV-2. Head CT was negative for any acute abnormality. She underwent chest CTA and CT abdomen pelvis which was negative for PE but did reveal moderate interstitial pulmonary edema. She was then subsequently placed on 40 mg of IV Lasix. Her ABG revealed an respiratory alkalosis. She was placed on BiPAP due to the pulmonary edema. She did receive some potassium replacement in ED as well. Her repeat troponin was 3427. She denies any recent chest pain or shortness of breath. She states she has a Basset hound and is very active walking her Dog. She denies any exertional chest pain when walking her dog. She further denies any orthopnea, PND, lower extremity edema or weight gain. She denies any prior history of CAD or CHF. She does admit to sweats this morning but denies any chills, lightheadedness, dizziness, syncope, palpitations, cough, URI symptoms, melena, hematochezia, dysuria, increased urgency or frequency with urination, and hematuria. Allergies Allergy/AdvReac Type Severity Reaction Status Date / Time lisinopril Allergy Intermediate Cough Verified 09/16/21 11:51 morphine Allergy Intermediate Rash Verified 09/16/21 11:51 Sulfa (Sulfonamide Allergy Intermediate Rash Verified 09/16/21 11:51 Antibiotics) Tetracyclines Allergy Intermediate Gastrointestinal Verified 09/16/21 11:51 Upset Home Medications Medication Instructions Recorded Confirmed Type aspirin 81 mg tablet,delayed 81 mg PO QAM 10/29/20 09/16/21 History release azelastine 137 mcg (0.1 %) nasal 1 spray INTRANASAL BID 10/29/20 09/16/21 History spray aerosol cetirizine 10 mg tablet 10 mg PO QAM 10/29/20 09/16/21 History felodipine 5 mg tablet,extended 5 mg PO QAM 10/29/20 09/16/21 History release 24 hr fluoxetine 40 mg capsule 40 mg PO QAM 10/29/20 09/16/21 History fluticasone propionate 50 1 - 2 spray INTRANASAL DAILY 10/29/20 09/16/21 History mcg/actuation nasal spray,suspension metoprolol succinate 50 mg 50 mg PO QAM 10/29/20 09/16/21 History tablet,extended release 24 hr pantoprazole 40 mg tablet,delayed 40 mg PO BID 10/29/20 09/16/21 History release (Protonix) acetaminophen 500 mg tablet 1,000 mg PO Q6H PRN 09/16/21 09/16/21 History (Tylenol Extra Strength) atorvastatin 40 mg tablet 40 mg PO DAILY 09/16/21 09/16/21 History conjugated estrogens 0.625 mg/gram 1 applic VAGINAL 2XWK 09/16/21 09/16/21 History vaginal cream (Premarin) metformin 1,000 mg tablet 1,000 mg PO BID 09/16/21 09/16/21 History montelukast 10 mg tablet 10 mg PO DAILY 09/16/21 09/16/21 History Past Med/Surg History Medical History (Updated 09/16/21 @ 15:53 by Brianne Vallejo PA-C) Anxiety Arthritis Cardiac murmur dx age 12 GERD (gastroesophageal reflux disease) Hyperlipidemia Hypertension Seasonal allergies T2DM (type 2 diabetes mellitus) Surgical History H/O basal cell carcinoma excision nose H/O section x1 H/O exploratory laparotomy H/O LEEP History of carpal tunnel release bilat History of cataract surgery History of colonoscopy History of esophagogastroduodenoscopy (EGD) History of hysterectomy History of tooth extraction S/P tonsillectomy and adenoidectomy Status post trigger finger release x3 Family History Aunt Colon cancer Mother Diabetes Social History Smoking Status: Never smoker Second Hand Exposure: No; Hx Alcohol Use: No Hx Substance Use: No Preferred Language: Macedonian Communication Ability: Effective 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 Beliefs That Will Affect Care: None Current Living Situation: Alone Feels Safe at Home: Yes Assistive Devices: Glasses Review of Systems Review of Systems: All systems reviewed & are unremarkable except as noted in HPI & below Physical Exam Physical Exam: Constitutional: WD/WN, acute ill F, vitals as above, +increased respirations, sitting up in bed, pleasant, conversing easily Head: Normocephalic, Atraumatic Eyes: PERRL, conjunctivae normal, anicteric sclerae ENMT: external ear and nose normal, oropharynx normal Neck: trachea midline, no thyromegaly normal visual inspection Respiratory: increased respiratory effort, b/l basilar rales and rhonchi noted, no wheeze. No accessory muscle use Cardiovascular: Tachycardic rate regular rhythm, no murmur, no edema Vessels: no JVD or carotid bruit Chest: normal inspection of chest Abdomen: normal bowel sounds, soft, nontender, no hepatosplenomegaly Musculoskeletal: no cyanosis or clubbing, extremities motor strength 5/5 Skin: no rashes, warm and dry normal turgor Neurologic: PERRL, EOMI, accommodation nl, no face palsy, no dysarthria CN's II-XI intact bilaterally and moves all extremities Psychiatric: A+Ox3, euthymic affect Lymphatic: no cervical or axillary lymphadenopathy : raul colored urine Results & Data Results & Data ([facility]) Vital Signs (Past 12 Hours) Vital Signs Temp Pulse Pulse Resp BP BP Pulse Ox 09/16/21 15:15 120 H 37 H 96 09/16/21 14:20 123 H 18 93 09/16/21 14:15 125 H 54 H 108/57 L 94 09/16/21 14:10 125 H 37 H 93 09/16/21 14:00 126 H 56 H 127/72 91 09/16/21 13:50 125 H 60 H 92 09/16/21 13:48 128 H 54 H 90 09/16/21 13:30 24 88 L 09/16/21 13:20 127 H 16 90 09/16/21 13:15 124 H 35 H 123/75 90 09/16/21 13:10 122 H 58 H 90 09/16/21 13:00 39.2 C H 114 H 43 H 113/80 94 09/16/21 12:52 133 H 106/62 09/16/21 12:50 137 H 33 H 92 09/16/21 12:45 134 H 42 H 106/62 93 09/16/21 12:40 135 H 56 H 92 09/16/21 12:30 140 H 59 H 132/78 91 09/16/21 12:20 137 H 45 H 93 09/16/21 12:15 134 H 54 H 136/75 93 09/16/21 12:10 135 H 32 H 92 09/16/21 12:00 132 H 44 H 125/65 93 09/16/21 11:50 134 H 47 H 93 09/16/21 11:45 134 H 46 H 133/67 09/16/21 11:40 133 H 50 H 95 09/16/21 11:30 134 H 27 H 129/69 09/16/21 11:20 134 H 25 H 93 09/16/21 11:15 135 H 26 H 135/70 95 09/16/21 11:10 136 H 36 H 95 09/16/21 11:00 135 H 41 H 136/63 94 09/16/21 10:50 93 09/16/21 10:46 50 H 121/67 94 09/16/21 10:45 133 H 24 69/52 L 121/76 92 09/16/21 10:30 138 H 26 H 136/69 91 09/16/21 10:20 89 L 09/16/21 10:15 131 H 138 H 45 H 138/71 138/71 94 09/16/21 10:13 131 H 32 H 147/71 H 93 09/16/21 10:05 133 H 31 H 147/71 H 94 09/16/21 10:00 129 H 30 H 09/16/21 09:50 30 H 93 09/16/21 09:45 127 H 40 H 09/16/21 09:42 126 H 43 H 93 09/16/21 09:36 37.9 C H 126 H 32 H 144/69 H 91 Medications Administered Medication List Discontinued Medications Aspirin (Aspirin Chew 324 Mg) 324 mg PO NOW STA Stop: 09/16/21 12:29 Last Admin: 09/16/21 12:53 Dose: 324 mg Documented by: [id number] Furosemide (Furosemide 40 Mg/4 Ml Vial) 40 mg IV ONE ONE Stop: 09/16/21 14:06 Last Admin: 09/16/21 14:34 Dose: 40 mg Documented by: [id number] Sodium Chloride (Nss 1000ml) 1,000 mls @ 999 mls/hr IV .Q1H1M [facility] Stop: 09/16/21 10:52 Last Infusion: 09/16/21 10:21 Dose: 0 mls/hr Documented by: [id number] Admin: 09/16/21 09:30 Dose: 999 mls/hr Documented by: [id number] Sodium Chloride (Nss 1000ml) 1,000 mls @ 999 mls/hr IV .Q1H1M [facility] Stop: 09/16/21 11:59 Last Infusion: 09/16/21 13:32 Dose: 0 mls/hr Documented by: [id number] Admin: 09/16/21 10:19 Dose: 999 mls/hr Documented by: [id number] Cefepime HCl (Maxipime) 2,000 mg in 20 mls @ 5 mls/min IV NOW STA; Protocol Stop: 09/16/21 09:53 Last Admin: 09/16/21 10:09 Dose: 5 mls/min Documented by: [id number] Vancomycin HCl 2,000 mg/ (Sodium Chloride) 540 mls @ 200 mls/hr IV NOW ONE Stop: 09/16/21 15:28 Last Admin: 09/16/21 14:33 Dose: 200 mls/hr Documented by: [id number] Potassium Chloride (K Robert / Wtr) 10 meq in 100 mls @ 100 mls/hr IV ONE ONE; Protocol Stop: 09/16/21 15:04 Last Admin: 09/16/21 14:33 Dose: 100 mls/hr Documented by: [id number] Ioversol (Optiray 320 125ml) 120 ml IV ONCE ONE Stop: 09/16/21 13:49 Last Admin: 09/16/21 13:48 Dose: 120 ml Documented by: [id number] Metoprolol Tartrate (Metoprolol Tartrate 1 Mg/Ml Vial) 5 mg IV NOW STA Stop: 09/16/21 12:29 Last Admin: 09/16/21 12:52 Dose: 5 mg Documented by: [id number] Potassium Chloride (Potassium Chloride 10 Meq Tabcr) 20 meq PO NOW STA Stop: 09/16/21 14:06 Last Admin: 09/16/21 14:34 Dose: 20 meq Documented by: [id number] ECG Rate (beats per minute): 126 Rhythm: sinus tachycardia COVID-19 Results Results COVID-19 Adm Lab Results: RBC 4.49 M/uL (4.2-5.4) 09/16/21 WBC 11.54 K/uL (4.8-10.8) H 09/16/21 Hgb 12.4 g/dL (12.0-16.0) 09/16/21 Hct 37.2 % (37-47) 09/16/21 Plt Count 181 K/uL (130-400) 09/16/21 Neutrophils (%) (Auto) 89.6 % 09/16/21 Lymphocytes (%) (Auto) 3.9 % 09/16/21 Monocytes # (Auto) 0.71 K/uL (0.11-0.59) H 09/16/21 Eosinophils # (Auto) 0.00 K/uL (0-0.5) 09/16/21 Immature Granulocyte % (Auto) 0.2 % 09/16/21 Neutrophils # (Auto) 10.35 K/uL (1.4-6.5) H 09/16/21 Lymphocytes # (Auto) 0.45 K/uL (1.2-3.4) L 09/16/21 Monocytes # (Auto) 0.71 K/uL (0.11-0.59) H 09/16/21 Eosinophils # (Auto) 0.00 K/uL (0-0.5) 09/16/21 Basophils # (Auto) 0.01 K/uL (0-0.2) 09/16/21 Immature Granulocyte # (Auto) 0.02 K/uL (0.00-0.02) 09/16/21 Na 131 mmol/L (136-145) L 09/16/21 K 3.0 mmol/L (3.5-5.1) L 09/16/21 Cl 97 mmol/L (98-107) L 09/16/21 CO2 18 mmol/L (21-32) L 09/16/21 Anion Gap 16 (3-11) H 09/16/21 BUN 18 mg/dl (6-23) 09/16/21 Creatinine 0.86 mg/dl (0.6-1.2) 09/16/21 BUN/Creatinine Ratio 20.9 (10-20) H 09/16/21 Glucose Level 208 mg/dl (70-99(Fasting)) H 09/16/21 Ca 9.1 mg/dl (8.5-10.1) 09/16/21 Total Bilirubin 1.0 mg/dl (0.2-1.0) 09/16/21 AST/SGOT 51 U/L (13-39) H 09/16/21 ALT/SGPT 39 U/L (7-52) 09/16/21 Alkaline Phosphatase 72 U/L (34-104) 09/16/21 Total Protein 7.6 gm/dl (6.0-8.3) 09/16/21 Albumin 4.1 gm/dl (3.4-5.0) 09/16/21 Globulin 3.5 gm/dl (2.5-4.0) 09/16/21 Albumin/Globulin Ratio 1.2 (0.9-2) 09/16/21 Procalcitonin 7.53 ng/ml (0-0.5) H 09/16/21 PTT 28.2 Seconds (21.0-31.0) 09/16/21 INR 1.2 (0.9-1.1) H 09/16/21 COVID-19 PCR NEGATIVE (Negative) 09/16/21 Influenza Virus Type A (PCR) Negative (Neg) 09/16/21 Influenza Virus Type B (PCR) Negative (Neg) 09/16/21 POC pH 7.47 (7.35-7.45) H 09/16/21 POC pCO2 27 mmHg (35-46) L 09/16/21 POC pO2 104 mmHg (80-95) H 09/16/21 POC HCO3 19 hleene/L (19-24) 09/16/21 POC Total CO2 20 mmol/L (24-31) L 09/16/21 POC Base Excess -4.0 helene/L (-9-1.8) 09/16/21 Chest X-Ray 09/16/21 Code Status & VTE Plan Code Status FULL CODE VTE Prophylaxis Plan VTE Prophylaxis will be ordered: Yes Supervising Physician Co-Signing Physician Notes 66 yo F with PMH of .... 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 She does report fever of 101F at home, denies headache/dizziness/chest pain/palpitation/cough/sore throat/belly pain/other ROS. She reports not taking her metoprolol since last 2 days. Likely sepsis 2/2 possible UTI; Viral AGE. RR, HR and Temp elevated. f/u blood and urine Cx. c/w iv antibiotic, supportive manageement Elevated trop, elevated BNP, get ECHO, trend trop to completion, cardio consult. Admitting ekg reviewed, sinus tach. Upon Exam GENERAL: Alert and oriented x3. NAD, on BPAP HEENT: No pallor, no icterus. Pupils equal, round and reactive to light. Oral mucosa moist. NECK: No JVD, no neck masses. HEART: S1 and S2 heard. Tachycardic, No murmur, no gallop. RESPIRATORY SYSTEM: Normal AP diameter. No accessory muscle use. No wheezing, diffuse b/b crackles. ABDOMEN: Soft, bowel sounds present, nontender, no distention. CENTRAL NERVOUS SYSTEM: No facial droop. Speech is clear. Obeys simple commands. Moves extremities. EXTREMITIES: No edema, no erythema seen. UC in situ w/ yellow urine collection noted. I have seen and examined the patient and have discussed the case with the provider above. I agree with the assessment and plan as stated.
[2021-09-16] MEDS ORDERED: GLUCOSE 40% GEL 15 GM TUBE PO PRN (16:42)
[2021-09-16] MEDS ORDERED: ALUMINUM/MAGNESIUM SUSP 30 ML UDC PO PRN (16:42)
[2021-09-16] MEDS ORDERED: CARBOHYDRATES FOR HYPOGLYCEMIA PO PRN (16:42)
[2021-09-16] MEDS ORDERED: GLUCAGON FOR INJ 1 MG VIAL SQ PRN (16:42)
[2021-09-16] MEDS ORDERED: POLYETHYLENE (MIRALAX) 17 GM PACK PO PRN (16:42)
[2021-09-16] MEDS ORDERED: MAGNESIUM HYDROXIDE SUSP 30 ML UDC PO PRN (16:42)
[2021-09-16] MEDS ORDERED: GLUCOSE 10 TABS/TUBE PO PRN (16:42)
[2021-09-16] MEDS ORDERED: CONSULT PHARMACY STA (16:42)
[2021-09-16] MEDS ORDERED: ONDANSETRON INJ 2 MG/ML 2 ML VIAL IV PRN (16:42)
[2021-09-16] MEDS ORDERED: DEXTROSE 50% 50 ML SYRINGE IV PRN (16:42)
[2021-09-16] MEDS ORDERED: POTASSIUM CHLORIDE CRTAB 20 MEQ TABCR PO STA (17:01)
[2021-09-16] MEDS: INSULIN ASPART PER UNIT SC SCH ×2 (17:49→20:37)
[2021-09-16] MEDS: MAGNESIUM SULFATE / D5W 1 GM/100 ML BAG IV SCH ×2 (17:55→19:56)
[2021-09-16] MEDS: METOPROLOL SUCC 50MG EXT REL TAB PO SCH (18:06)
--- NOTE | 2021-09-16 18:51 | Pharmacy Report ---
Pharmacy Vanc AUC Short Note - Date of Service September 16, 2021 - Assessment & Plan Assessment 66 year old F receiving empiric vancomycin and cefepime for treatment of empiric sepsis secondary to unknown source (possible UTI? vs. viral illness). Patient with fever, tachycardia, and tachypnea. Pertinent microbiologic data includes: Blood/urine cultures pending. Day # 1 of antimicrobial therapy. Plan Vancomycin * AUC/JAZLYN is the preferred PK/PD target for vancomycin * AUC guided dosing is effective and associated with decreased risk of nephrotoxicity compared to traditional trough targets * Loading dose of 2000 mg IV x 1 dose given in ED (~26 mg/kg) * Maintenance dose of 750 mg IV q12h is predicted to achieve target AUC/JAZLYN of 400-600 mg/L.hr and may be associated with a 11 % risk of nephrotoxicity * Will order vanco trough/random level if therapy is to continue beyond 48 hours Cefepime * Target dose of 2 g IV q8h * Reduce to q12h dosing for eCrCl of 57 mL/min Pharmacy will continue to follow and will adjust dose/frequency as necessary. Thank you.
[2021-09-16] MEDS ORDERED: ACETAMINOPHEN 325 MG TAB PO STA (18:52)
--- NOTE | 2021-09-16 18:52 | Communication Note ---
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 She does report fever of 101F at home, denies headache/dizziness/chest pain/palpitation/cough/sore throat/belly pain/other ROS. She reports not taking her metoprolol since last 2 days. Likely sepsis 2/2 possible UTI; Viral AGE. RR, HR and Temp elevated. f/u blood and urine Cx. c/w iv antibiotic, supportive manageement Pulmonary edema, elevated trop, elevated BNP, get ECHO, trend trop to completion, cardio consult. Admitting ekg reviewed, sinus tach. Received a dose of Lasix, defer further Lasix to cardiology. Monitor and replete electrolytes. Upon Exam GENERAL: Alert and oriented x3. NAD, on BPAP HEENT: No pallor, no icterus. Pupils equal, round and reactive to light. Oral mucosa moist. NECK: No JVD, no neck masses. HEART: S1 and S2 heard. Tachycardic, No murmur, no gallop. RESPIRATORY SYSTEM: Normal AP diameter. No accessory muscle use. No wheezing, diffuse b/b crackles. ABDOMEN: Soft, bowel sounds present, nontender, no distention. CENTRAL NERVOUS SYSTEM: No facial droop. Speech is clear. Obeys simple commands. Moves extremities. EXTREMITIES: No edema, no erythema seen. Urinary catheter in situ w/ yellow urine collection noted. I have seen and examined the patient and have discussed the case with the provider above. I agree with the assessment and plan as stated in today's H&P.
[2021-09-16] MEDS ORDERED: FUROSEMIDE INJ 20 MG/2 ML VIAL IV STA (19:36)
[2021-09-16] MEDS: AZELASTINE HCL 0.1% NASAL 200 SPRAYS/27,400 MCG BTL SCH (20:36)
[2021-09-16] MEDS: INSULIN GLARGINE SOLOSTAR 100 UNITS/ML 3 ML PEN SC SCH (20:36)
[2021-09-16] MEDS: PANTOprazole 40 MG TAB PO SCH (20:38)
[2021-09-16 20:48] LABS: Magnesium 1.8 mg/dl (1.7-2.4); Troponin I High Sensitivity 4732.5 pg/ml (0-14)
[2021-09-16] MEDS ORDERED: XOPENEX/ATROVENT 1.25mg/0.5MG NEB COMBO NEB STA (21:21)
[2021-09-16] MEDS ORDERED: IPRATROPIUM BROMIDE NEB SOLN 0.02% 2.5 ML VIAL INH STA (21:30)
[2021-09-16] MEDS ORDERED: LEVALBUTEROL 1.25MG/0.5ML NEB INH STA (21:31)
[2021-09-16] MEDS: CEFEPIME 2,000 MG in SYRINGE 0 ML IV SCH (22:17)
[2021-09-16] MEDS: POTASSIUM CHLORIDE / WTR 10 MEQ/100 ML PLCT IV SCH ×2 (22:21→23:14)
[2021-09-16] MEDS ORDERED: VANCOMYCIN HCL 750 MG in SODIUM CHLORIDE 0.9% 250 ML IV SCH (23:00)
[2021-09-16] MEDS ORDERED: ALBUMIN 25% 12.5 GM/50 ML VIAL IV ONE (23:05)
[2021-09-16] MEDS: ENOXAPARIN INJ 40 MG/0.4 ML SYR SQ SCH (23:11)
[2021-09-17] MEDS: POTASSIUM CHLORIDE / WTR 10 MEQ/100 ML PLCT IV SCH ×2 (00:22→01:26)
[2021-09-17] MEDS ORDERED: ALBUMIN 25% 12.5 GM/50 ML VIAL IV ONE (01:16)
[2021-09-17] MEDS: ACETAMINOPHEN 325 MG TAB PO PRN ×3 (03:01→17:32)
[2021-09-17 06:06] LABS: Basophils # (auto) 0.02 K/uL (0-0.2); Basophils % (auto) 0.2 %; Hematocrit (blood only) 33.7 % (37-47); Hemoglobin 10.8 g/dL (12.0-16.0); Immature Granulocytes # (auto) 0.02 K/uL (0.00-0.02); Immature Granulocytes % (auto) 0.2 %; Lymphocytes # (auto) 0.68 K/uL (1.2-3.4); Lymphocytes % (auto) 8.1 %; Mean Corpuscular Hemoglobin 27.1 pg (25-34); Mean Corpuscular Volume 84.5 fL (80-100); Mean Platelet Volume 10.5 fL (7.4-10.4); Monocytes # (auto) 0.38 K/uL (0.11-0.59); Monocytes % (auto) 4.5 %; Neutrophils # (auto) 7.32 K/uL (1.4-6.5); Platelet Count 131 K/uL (130-400); RDW Coefficient of Variation 14.5 % (11.5-14.5); RDW Standard Deviation 45.3 fL (36.4-46.3); Red Blood Count 3.99 M/uL (4.2-5.4); White Blood Count 8.42 K/uL (4.8-10.8)
[2021-09-17 06:40] LABS: Albumin Globulin Ratio 1.2 (0.9-2); Albumin Level 3.7 gm/dl (3.4-5.0); BUN Creatinine Ratio 26.2 (10-20); Bilirubin,Total 0.7 mg/dl (0.2-1.0); Creatinine Clr Calc Pharmacy 75.7 ml/min; Est GFR (African American) 107.2 ml/min; Est GFR (Non-African American) 92.5 ml/min; Globulin 3.1 gm/dl (2.5-4.0); Magnesium 2.2 mg/dl (1.7-2.4); Potassium 4.2 mmol/L (3.5-5.1); Total Protein 6.8 gm/dl (6.0-8.3)
[2021-09-17] MEDS: INSULIN ASPART PER UNIT SC SCH ×4 (08:20→20:31)
[2021-09-17] MEDS: ASPIRIN 81 MG ECTAB PO SCH (08:21)
[2021-09-17] MEDS: AZELASTINE HCL 0.1% NASAL 200 SPRAYS/27,400 MCG BTL SCH ×2 (08:22→20:24)
[2021-09-17] MEDS: ATORVASTATIN 40 MG TAB PO SCH (08:22)
[2021-09-17] MEDS: CETIRIZINE HCL 10 MG TABLET PO SCH (08:23)
[2021-09-17] MEDS: FLUoxetine HCL 20 MG CAP PO SCH (08:23)
[2021-09-17] MEDS: FUROSEMIDE 40 MG/4 ML VIAL IV SCH (08:24)
[2021-09-17] MEDS: METOPROLOL SUCC 50MG EXT REL TAB PO SCH (08:26)
[2021-09-17] MEDS: INSULIN GLARGINE SOLOSTAR 100 UNITS/ML 3 ML PEN SC SCH ×2 (08:27→20:31)
[2021-09-17] MEDS: MONTELUKAST SODIUM 10 MG TABLET PO SCH (08:27)
[2021-09-17] MEDS: PANTOprazole 40 MG TAB PO SCH ×2 (08:28→20:25)
[2021-09-17] MEDS: CEFEPIME 2,000 MG in SYRINGE 0 ML IV SCH (08:36)
[2021-09-17] MEDS: ceFAZolin 1000MG 1,000 MG/7.5 ML SYR IV SCH ×3 (09:58→21:09)
--- NOTE | 2021-09-17 12:01 | Electrocardiogram Report ---
Test Reason : Blood Pressure : / mmHG Vent. Rate : 138 BPM Atrial Rate : 138 BPM P-R Int : 136 ms QRS Dur : 078 ms QT Int : 292 ms P-R-T Axes : 066 035 042 degrees QTc Int : 442 ms Sinus tachycardia Biatrial enlargement Abnormal ECG When compared with ECG of 16-SEP-2021 09:35, No significant change was found Confirmed by Jefyf Olmstead ([id number]) on 09/17/2021 12:00:56 PM Referred By: REFERRED SELF Confirmed By:Jeffy Olmstead
--- NOTE | 2021-09-17 12:30 | Cardiology Consultation ---
Date of Consultation September 17, 2021 Assessment & Plan (1) Sepsis: (2) Endocarditis of mitral valve: (3) Non-ST elevation (NSTEMI) myocardial infarction: (4) Staphylococcus aureus bacteremia: (5) Abnormal echocardiogram: (6) Sinus tachycardia: (7) Hypotension: 66-year-old female admitted on 09/16/2021 with sepsis, staphylococcus bacteremia, presumed urinary source. Moderate interstitial edema observed following fluid resuscitation, improved with IV furosemide and BiPAP therapy. Patient appeared mildly hypervolemic when evaluated this morning, receiving 40 mg IV furosemide at 0824. Elevated high-sensitivity troponin felt to be secondary to sepsis, demand ischemia; patient without overt angina type symptoms. Resting echocardiography notable for a small mobile echodensity adherent to the atrial surface of the posterior mitral valve leaflet suggesting possible vegetation. Hold off on further doses of IV furosemide for now, reevaluating in the AM. Continue metoprolol succinate as blood pressure allows. Agree with holding felodipine as well as continuation of aspirin and moderate intensity statin therapy. Proceed with transesophageal echocardiography when respiratory status improves. Further recommendations pending evaluation by Dr. Mtz and patient's ongoing hospitalization. Supervising Physician Co-Signing Physician Notes Patient seen examined the bedside. States she is feeling better since hospital admission. Reports confusion and lethargy prior to admission. Denies chest pain or shortness of breath. No orthopnea, PND, or palpitations. Borderline hypotensive although asymptomatic at this time. Mildly hypoxic requiring oxygen supplementation. Intermittent fevers unchanged. Blood cultures growing staph aureus. PE: VSS. Gen: NAD, AAOx3. Heart: Regular rhythm, borderline tachycardic. No murmur, rub, or gallop. Lungs: Crackles at the bases bilaterally. No wheeze. Extremities: No edema. Neuro: No focal deficit. A/P: Agree with above PA-C history, physical exam, assessment and plan. Echocardiogram demonstrating small mobile posterior mitral valve leaflet echodensity suggestive of endocarditis. She will require at least 6 weeks of IV antibiotic therapy. Consider infectious disease consultation. Transesophageal echocardiogram may be considered as hospital course progresses. Echocardiogram also demonstrating a new apical wall motion abnormality suggesting underlying obstructive coronary disease. Elevated troponin secondary to demand ischemia versus plaque rupture event and subsequent wall motion abnormality. I would not initiate IV heparin with evidence of endocarditis at this time. Patient without anginal symptoms. She received single dose of IV Lasix this morning. Monitor fluid balance, daily weight. Reevaluate volume status daily determine need for IV diuretics, however, the setting of severe sepsis prefer to keep her euvolemic to slightly hypervolemic. Prognosis is guarded. History of Present Illness Reason for Consultation: Pulmonary edema Requesting Physician: Genevieve Attending Physician: Libra History of Present Illness Ana Maria Reyes is a 66-year-old female who presented to the [facility] ER on 09/16/2021 with generalized weakness and fatigue that was preceded by dry heaves, rigors, and confusion as observed by her son. Symptoms may have initially begun on Monday. Patient febrile and tachycardic on presentation, receiving 2 L of IV fluid bolus in the ER as well as broad-spectrum antibiotics with vancomycin and cefepime. CT after fluid resuscitation with moderate interstitial edema. She initially received 20 mg IV furosemide in the ER followed by 40 mg IV furosemide on admission, also requiring BiPAP therapy. She received an additional 40 mg IV furosemide this morning. Cardiology consultation requested due to pulmonary edema. Work-up has revealed sepsis secondary to possible urinary tract infection with 2 blood cultures growing Staphylococcus species. EKG revealed sinus tachycardia at [address] segment changes. High-sensitivity troponin I elevated as follows: 1008.5 -> 3427.9 -> 4732.5 -> 3433.2 pg/mL. Resting echocardiography revealed a small mobile echodensity adherent to the atrial surface of the posterior mitral valve leaflet suggesting possible vegetation. Systolic function was normal, ejection fraction 60 to 65%, with a small sized apical wall motion abnormality, with hypokinesis of the segments. Moderate tricuspid regurgitation noted. Estimated pulmonary artery systolic pressure 58 mmHg. Interatrial septum bows toward the right atrium, consistent with elevated left atrial pressure. Patient denies chest pain or palpitations. Dyspnea has improved. She is no longer requiring BiPAP. Patient denies current dyspnea though elevated respiratory rate noted on evaluation along with bibasilar rales. Patient denies orthopnea or PND. No dizziness or headaches. Allergies Allergy/AdvReac Type Severity Reaction Status Date / Time lisinopril Allergy Intermediate Cough Verified 09/16/21 11:51 morphine Allergy Intermediate Rash Verified 09/16/21 11:51 Sulfa (Sulfonamide Allergy Intermediate Rash Verified 09/16/21 11:51 Antibiotics) Tetracyclines Allergy Intermediate Gastrointestinal Verified 09/16/21 11:51 Upset Home Medications Medication Instructions Recorded Confirmed Type aspirin 81 mg tablet,delayed 81 mg PO QAM 10/29/20 09/16/21 History release azelastine 137 mcg (0.1 %) nasal 1 spray INTRANASAL BID 10/29/20 09/16/21 History spray aerosol cetirizine 10 mg tablet 10 mg PO QAM 10/29/20 09/16/21 History felodipine 5 mg tablet,extended 5 mg PO QAM 10/29/20 09/16/21 History release 24 hr fluoxetine 40 mg capsule 40 mg PO QAM 10/29/20 09/16/21 History fluticasone propionate 50 1 - 2 spray INTRANASAL DAILY 10/29/20 09/16/21 History mcg/actuation nasal spray,suspension metoprolol succinate 50 mg 50 mg PO QAM 10/29/20 09/16/21 History tablet,extended release 24 hr pantoprazole 40 mg tablet,delayed 40 mg PO BID 10/29/20 09/16/21 History release (Protonix) acetaminophen 500 mg tablet 1,000 mg PO Q6H PRN 09/16/21 09/16/21 History (Tylenol Extra Strength) atorvastatin 40 mg tablet 40 mg PO DAILY 09/16/21 09/16/21 History conjugated estrogens 0.625 mg/gram 1 applic VAGINAL [id number] 09/16/21 09/16/21 History vaginal cream (Premarin) metformin 1,000 mg tablet 1,000 mg PO BID 09/16/21 09/16/21 History montelukast 10 mg tablet 10 mg PO DAILY 09/16/21 09/16/21 History Patient History Medical History Anxiety Arthritis Cardiac murmur dx age 12 GERD (gastroesophageal reflux disease) Hyperlipidemia Hypertension Seasonal allergies T2DM (type 2 diabetes mellitus) Surgical History H/O basal cell carcinoma excision nose H/O section x1 H/O exploratory laparotomy H/O LEEP History of carpal tunnel release bilat History of cataract surgery History of colonoscopy History of esophagogastroduodenoscopy (EGD) History of hysterectomy History of tooth extraction S/P tonsillectomy and adenoidectomy Status post trigger finger release x3 Family History Aunt Colon cancer Mother Diabetes Social History Smoking Status: Never smoker Second Hand Exposure: No; Hx Alcohol Use: No Hx Substance Use: No Preferred Language: Swiss Communication Ability: Effective Salvage Winder And Inspector Required: No Beliefs That Will Affect Care: None Current Living Situation: Alone Other Information That Helps Us Care for You: No Feels Safe at Home: Yes Safety Concerns: Feels Safe At This Time Assistive Devices: None Review of Systems Review of Systems: Complete review of systems is otherwise as stated above, negative, noncontributory. Physical Exam Physical Exam: General: A&Ox3. NAD. Increased respiratory rate. HENT: Normocephalic. Atraumatic. Eyes: PER. Conjunctiva pink, sclera clear. Neck: No carotid bruits. + Minimal JVD. Heart: Regular at 100 bpm. No murmur. No rub. No gallop. Lungs: Bibasilar rales. Abdomen: +BS. Soft. Nontender. No masses or organomegaly. Extremities: No clubbing, cyanosis, or edema. Limited neurological examination is without focal deficits. Pulses: radial=2/4, posterior tibial=2/4. Results & Data ([facility]) Vital Signs (Past 12 Hours) Vital Signs Temp Pulse Pulse Resp BP Pulse Ox 09/17/21 11:10 37.9 C H 53 L 16 96/59 L 96 09/17/21 08:25 111/66 09/17/21 08:00 93 H 09/17/21 07:44 37.8 C H 95 H 18 94/58 L 95 09/17/21 07:11 96 H 36 H 98 09/17/21 03:07 98 H 38 H 97 09/17/21 02:52 38 C H 104 H 30 H 123/73 97 Laboratory Results Laboratory Results - last 48 hr 09/16/21 09/16/21 09/16/21 09:30 09:30 09:30 WBC 11.54 H RBC 4.49 Hgb 12.4 POC Hgb Hct 37.2 POC Hct MCV 82.9 MCH 27.6 MCHC 33.3 RDW Std Deviation 43.3 RDW Coeff of Puma 14.1 Plt Count 181 MPV 10.8 H Immature Gran % (Auto) 0.2 Neut % (Auto) 89.6 Lymph % (Auto) 3.9 Daniels % (Auto) 6.2 Eos % (Auto) 0.0 Baso % (Auto) 0.1 Neut # (Auto) 10.35 H Lymph # (Auto) 0.45 L Daniels # (Auto) 0.71 H Eos # (Auto) 0.00 Baso # (Auto) 0.01 Immature Gran # (Auto) 0.02 PT 12.7 H INR 1.2 H APTT 28.2 PTT Ratio 1.0 POC pH POC pCO2 POC pO2 POC HCO3 POC Total CO2 POC Base Excess POC ABG O2 Sat POC Sodium Sodium 131 L POC Potassium Potassium 3.0 L Chloride 97 L Carbon Dioxide 18 L Anion Gap 16 H BUN 18 Creatinine 0.86 Est Cr Clr Drug Dosing 57.2 Est GFR ( Amer) 81.6 Est GFR (Non-Af Amer) 70.4 BUN/Creatinine Ratio 20.9 H Glucose 208 H POC Glucose Lactate Calcium 9.1 Magnesium 1.3 L Total Bilirubin 1.0 AST 51 H ALT 39 Alkaline Phosphatase 72 Troponin I High Sens 1008.5 H* B-Natriuretic Peptide Total Protein 7.6 Albumin 4.1 Globulin 3.5 Albumin/Globulin Ratio 1.2 Procalcitonin Urine Color Urine Appearance Urine pH Ur Specific [place] Urine Protein Urine Glucose (UA) Urine Ketones Urine Blood Urine Nitrite Urine Bilirubin Urine Urobilinogen Ur Leukocyte Esterase Urine WBC (Auto) Urine RBC (Auto) U Hyaline Cast (Auto) U Epithel Cells (Auto) Urine Bacteria (Auto) Urine Yeast Nasal Screen MRSA (PCR) Anaplasma Smear Babesia Smear Lyme Disease IgG Ab Lyme Disease IgM Ab SARS-CoV-2 (PCR) Influenza Type A (PCR) Influenza Type B (PCR) RSV (RT-PCR) Bld Cult Staph aureus PCR Blood Culture MRSA PCR 09/16/21 09/16/21 09/16/21 09:30 09:50 09:52 WBC RBC Hgb POC Hgb Hct POC Hct MCV MCH MCHC RDW Std Deviation RDW Coeff of [place] Plt Count MPV Immature Gran % (Auto) Neut % (Auto) Lymph % (Auto) Daniels % (Auto) Eos % (Auto) Baso % (Auto) Neut # (Auto) Lymph # (Auto) Daniels # (Auto) Eos # (Auto) Baso # (Auto) Immature Gran # (Auto) PT INR APTT PTT Ratio POC pH POC pCO2 POC pO2 POC HCO3 POC Total CO2 POC Base Excess POC ABG O2 Sat POC Sodium Sodium POC Potassium Potassium Chloride Carbon Dioxide Anion Gap BUN Creatinine Est Cr Clr Drug Dosing Est GFR ( Amer) Est GFR (Non-Af Amer) BUN/Creatinine Ratio Glucose POC Glucose Lactate 2.3 H* Calcium Magnesium Total Bilirubin AST ALT Alkaline Phosphatase Troponin I High Sens B-Natriuretic Peptide Total Protein Albumin Globulin Albumin/Globulin Ratio Procalcitonin 7.53 H Urine Color Urine Appearance Urine pH Ur Specific [place] Urine Protein Urine Glucose (UA) Urine Ketones Urine Blood Urine Nitrite Urine Bilirubin Urine Urobilinogen Ur Leukocyte Esterase Urine WBC (Auto) Urine RBC (Auto) U Hyaline Cast (Auto) U Epithel Cells (Auto) Urine Bacteria (Auto) Urine Yeast Nasal Screen MRSA (PCR) Anaplasma Smear Babesia Smear Lyme Disease IgG Ab Negative Lyme Disease IgM Ab Negative SARS-CoV-2 (PCR) Influenza Type A (PCR) Influenza Type B (PCR) RSV (RT-PCR) Bld Cult Staph aureus PCR Positive A Blood Culture MRSA PCR Negative 09/16/21 09/16/21 09/16/21 10:05 10:09 12:00 WBC RBC Hgb POC Hgb Hct POC Hct MCV MCH MCHC RDW Std Deviation RDW Coeff of Puma Plt Count MPV Immature Gran % (Auto) Neut % (Auto) Lymph % (Auto) Daniels % (Auto) Eos % (Auto) Baso % (Auto) Neut # (Auto) Lymph # (Auto) Daniels # (Auto) Eos # (Auto) Baso # (Auto) Immature Gran # (Auto) PT INR APTT PTT Ratio POC pH POC pCO2 POC pO2 POC HCO3 POC Total CO2 POC Base Excess POC ABG O2 Sat POC Sodium Sodium POC Potassium Potassium Chloride Carbon Dioxide Anion Gap BUN Creatinine Est Cr Clr Drug Dosing Est GFR ( Amer) Est GFR (Non-Af Amer) BUN/Creatinine Ratio Glucose POC Glucose Lactate Cancelled Calcium Magnesium Total Bilirubin AST ALT Alkaline Phosphatase Troponin I High Sens B-Natriuretic Peptide Total Protein Albumin Globulin Albumin/Globulin Ratio Procalcitonin Urine Color Urine Appearance Urine pH Ur Specific [place] Urine Protein Urine Glucose (UA) Urine Ketones Urine Blood Urine Nitrite Urine Bilirubin Urine Urobilinogen Ur Leukocyte Esterase Urine WBC (Auto) Urine RBC (Auto) U Hyaline Cast (Auto) U Epithel Cells (Auto) Urine Bacteria (Auto) Urine Yeast Nasal Screen MRSA (PCR) Anaplasma Smear Babesia Smear Lyme Disease IgG Ab Lyme Disease IgM Ab SARS-CoV-2 (PCR) NEGATIVE Influenza Type A (PCR) Negative Influenza Type B (PCR) Negative RSV (RT-PCR) Negative Bld Cult Staph aureus PCR Positive A Blood Culture MRSA PCR Negative 09/16/21 09/16/21 09/16/21 12:00 14:05 14:06 WBC RBC Hgb POC Hgb Hct POC Hct MCV MCH MCHC RDW Std Deviation RDW Coeff of Puma Plt Count MPV Immature Gran % (Auto) Neut % (Auto) Lymph % (Auto) Daniels % (Auto) Eos % (Auto) Baso % (Auto) Neut # (Auto) Lymph # (Auto) Daniels # (Auto) Eos # (Auto) Baso # (Auto) Immature Gran # (Auto) PT INR APTT PTT Ratio POC pH POC pCO2 POC pO2 POC HCO3 POC Total CO2 POC Base Excess POC ABG O2 Sat POC Sodium Sodium POC Potassium Potassium Chloride Carbon Dioxide Anion Gap BUN Creatinine Est Cr Clr Drug Dosing Est GFR ( Amer) Est GFR (Non-Af Amer) BUN/Creatinine Ratio Glucose POC Glucose Lactate 1.4 Calcium Magnesium Total Bilirubin AST ALT Alkaline Phosphatase Troponin I High Sens 3427.9 H* D B-Natriuretic Peptide Total Protein Albumin Globulin Albumin/Globulin Ratio Procalcitonin Urine Color Dark Yellow Urine Appearance Cloudy A Urine pH 5.0 Ur Specific [place] 1.028 Urine Protein 3+ H Urine Glucose (UA) Trace H Urine Ketones 1+ H Urine Blood 3+ H Urine Nitrite Negative Urine Bilirubin Negative Urine Urobilinogen Negative Ur Leukocyte Esterase 1+ H Urine WBC (Auto) >30 H Urine RBC (Auto) 0-4 U Hyaline Cast (Auto) 1-5 U Epithel Cells (Auto) 20-30 H Urine Bacteria (Auto) 1+ H Urine Yeast Not Reportable Nasal Screen MRSA (PCR) Anaplasma Smear Babesia Smear Lyme Disease IgG Ab Lyme Disease IgM Ab SARS-CoV-2 (PCR) Influenza Type A (PCR) Influenza Type B (PCR) RSV (RT-PCR) Bld Cult Staph aureus PCR Blood Culture MRSA PCR 09/16/21 09/16/21 09/16/21 15:05 15:06 15:07 WBC RBC Hgb POC Hgb 11.6 L Hct POC Hct 34 L MCV MCH MCHC RDW Std Deviation RDW Coeff of Puma Plt Count MPV Immature Gran % (Auto) Neut % (Auto) Lymph % (Auto) Daniels % (Auto) Eos % (Auto) Baso % (Auto) Neut # (Auto) Lymph # (Auto) Daniels # (Auto) Eos # (Auto) Baso # (Auto) Immature Gran # (Auto) PT INR APTT PTT Ratio POC pH 7.47 H POC pCO2 27 L POC pO2 104 H POC HCO3 19 POC Total CO2 20 L POC Base Excess -4.0 POC ABG O2 Sat 98.0 H POC Sodium 136 Sodium POC Potassium 3.0 L Potassium Chloride Carbon Dioxide Anion Gap BUN Creatinine Est Cr Clr Drug Dosing Est GFR ( Amer) Est GFR (Non-Af Amer) BUN/Creatinine Ratio Glucose POC Glucose Lactate Calcium Magnesium Total Bilirubin AST ALT Alkaline Phosphatase Troponin I High Sens B-Natriuretic Peptide 1221 H Total Protein Albumin Globulin Albumin/Globulin Ratio Procalcitonin Urine Color Urine Appearance Urine pH Ur Specific [place] Urine Protein Urine Glucose (UA) Urine Ketones Urine Blood Urine Nitrite Urine Bilirubin Urine Urobilinogen Ur Leukocyte Esterase Urine WBC (Auto) Urine RBC (Auto) U Hyaline Cast (Auto) U Epithel Cells (Auto) Urine Bacteria (Auto) Urine Yeast Nasal Screen MRSA (PCR) Anaplasma Smear See Comment Babesia Smear See Comment Lyme Disease IgG Ab Lyme Disease IgM Ab SARS-CoV-2 (PCR) Influenza Type A (PCR) Influenza Type B (PCR) RSV (RT-PCR) Bld Cult Staph aureus PCR Blood Culture MRSA PCR 09/16/21 09/16/21 09/16/21 16:48 19:45 20:09 WBC RBC Hgb POC Hgb Hct POC Hct MCV MCH MCHC RDW Std Deviation RDW Coeff of Puma Plt Count MPV Immature Gran % (Auto) Neut % (Auto) Lymph % (Auto) Daniels % (Auto) Eos % (Auto) Baso % (Auto) Neut # (Auto) Lymph # (Auto) Daniels # (Auto) Eos # (Auto) Baso # (Auto) Immature Gran # (Auto) PT INR APTT PTT Ratio POC pH POC pCO2 POC pO2 POC HCO3 POC Total CO2 POC Base Excess POC ABG O2 Sat POC Sodium Sodium POC Potassium Potassium Chloride Carbon Dioxide Anion Gap BUN Creatinine Est Cr Clr Drug Dosing Est GFR ( Amer) Est GFR (Non-Af Amer) BUN/Creatinine Ratio Glucose POC Glucose 125 H 141 H Lactate Calcium Magnesium 1.8 Total Bilirubin AST ALT Alkaline Phosphatase Troponin I High Sens 4732.5 H* D B-Natriuretic Peptide Total Protein Albumin Globulin Albumin/Globulin Ratio Procalcitonin Urine Color Urine Appearance Urine pH Ur Specific [place] Urine Protein Urine Glucose (UA) Urine Ketones Urine Blood Urine Nitrite Urine Bilirubin Urine Urobilinogen Ur Leukocyte Esterase Urine WBC (Auto) Urine RBC (Auto) U Hyaline Cast (Auto) U Epithel Cells (Auto) Urine Bacteria (Auto) Urine Yeast Nasal Screen MRSA (PCR) Anaplasma Smear Babesia Smear Lyme Disease IgG Ab Lyme Disease IgM Ab SARS-CoV-2 (PCR) Influenza Type A (PCR) Influenza Type B (PCR) RSV (RT-PCR) Bld Cult Staph aureus PCR Blood Culture MRSA PCR 09/17/21 09/17/21 09/17/21 02:06 05:27 05:27 WBC 8.42 RBC 3.99 L Hgb 10.8 L POC Hgb Hct 33.7 L POC Hct MCV 84.5 MCH 27.1 MCHC 32.0 RDW Std Deviation 45.3 RDW Coeff of Puma 14.5 Plt Count 131 MPV 10.5 H Immature Gran % (Auto) 0.2 Neut % (Auto) 87.0 Lymph % (Auto) 8.1 Daniels % (Auto) 4.5 Eos % (Auto) 0.0 Baso % (Auto) 0.2 Neut # (Auto) 7.32 H Lymph # (Auto) 0.68 L Daniels # (Auto) 0.38 Eos # (Auto) 0.00 Baso # (Auto) 0.02 Immature Gran # (Auto) 0.02 PT INR APTT PTT Ratio POC pH POC pCO2 POC pO2 POC HCO3 POC Total CO2 POC Base Excess POC ABG O2 Sat POC Sodium Sodium 133 L POC Potassium Potassium 4.2 D Chloride 105 Carbon Dioxide 19 L Anion Gap 9 BUN 17 Creatinine 0.65 Est Cr Clr Drug Dosing 75.7 Est GFR ( Amer) 107.2 Est GFR (Non-Af Amer) 92.5 BUN/Creatinine Ratio 26.2 H Glucose 110 H POC Glucose Lactate Calcium 8.0 L Magnesium 2.2 Total Bilirubin 0.7 AST 117 H ALT 64 H Alkaline Phosphatase 43 Troponin I High Sens 3433.2 H* D B-Natriuretic Peptide Total Protein 6.8 Albumin 3.7 Globulin 3.1 Albumin/Globulin Ratio 1.2 Procalcitonin Urine Color Urine Appearance Urine pH Ur Specific [place] Urine Protein Urine Glucose (UA) Urine Ketones Urine Blood Urine Nitrite Urine Bilirubin Urine Urobilinogen Ur Leukocyte Esterase Urine WBC (Auto) Urine RBC (Auto) U Hyaline Cast (Auto) U Epithel Cells (Auto) Urine Bacteria (Auto) Urine Yeast Nasal Screen MRSA (PCR) Anaplasma Smear Babesia Smear Lyme Disease IgG Ab Lyme Disease IgM Ab SARS-CoV-2 (PCR) Influenza Type A (PCR) Influenza Type B (PCR) RSV (RT-PCR) Bld Cult Staph aureus PCR Blood Culture MRSA PCR 09/17/21 09/17/21 09/17/21 05:27 07:27 10:00 WBC RBC Hgb POC Hgb Hct POC Hct MCV MCH MCHC RDW Std Deviation RDW Coeff of Puma Plt Count MPV Immature Gran % (Auto) Neut % (Auto) Lymph % (Auto) Daniels % (Auto) Eos % (Auto) Baso % (Auto) Neut # (Auto) Lymph # (Auto) Daniels # (Auto) Eos # (Auto) Baso # (Auto) Immature Gran # (Auto) PT INR APTT PTT Ratio POC pH POC pCO2 POC pO2 POC HCO3 POC Total CO2 POC Base Excess POC ABG O2 Sat POC Sodium Sodium POC Potassium Potassium Chloride Carbon Dioxide Anion Gap BUN Creatinine Est Cr Clr Drug Dosing Est GFR ( Amer) Est GFR (Non-Af Amer) BUN/Creatinine Ratio Glucose POC Glucose 100 H Lactate Calcium Magnesium Total Bilirubin AST ALT Alkaline Phosphatase Troponin I High Sens B-Natriuretic Peptide Total Protein Albumin Globulin Albumin/Globulin Ratio Procalcitonin 37.68 H Urine Color Urine Appearance Urine pH Ur Specific [place] Urine Protein Urine Glucose (UA) Urine Ketones Urine Blood Urine Nitrite Urine Bilirubin Urine Urobilinogen Ur Leukocyte Esterase Urine WBC (Auto) Urine RBC (Auto) U Hyaline Cast (Auto) U Epithel Cells (Auto) Urine Bacteria (Auto) Urine Yeast Nasal Screen MRSA (PCR) Negative Anaplasma Smear Babesia Smear Lyme Disease IgG Ab Lyme Disease IgM Ab SARS-CoV-2 (PCR) Influenza Type A (PCR) Influenza Type B (PCR) RSV (RT-PCR) Bld Cult Staph aureus PCR Blood Culture MRSA PCR 09/17/21 11:03 WBC RBC Hgb POC Hgb Hct POC Hct MCV MCH MCHC RDW Std Deviation RDW Coeff of Puma Plt Count MPV Immature Gran % (Auto) Neut % (Auto) Lymph % (Auto) Daniels % (Auto) Eos % (Auto) Baso % (Auto) Neut # (Auto) Lymph # (Auto) Daniels # (Auto) Eos # (Auto) Baso # (Auto) Immature Gran # (Auto) PT INR APTT PTT Ratio POC pH POC pCO2 POC pO2 POC HCO3 POC Total CO2 POC Base Excess POC ABG O2 Sat POC Sodium Sodium POC Potassium Potassium Chloride Carbon Dioxide Anion Gap BUN Creatinine Est Cr Clr Drug Dosing Est GFR ( Amer) Est GFR (Non-Af Amer) BUN/Creatinine Ratio Glucose POC Glucose 125 H Lactate Calcium Magnesium Total Bilirubin AST ALT Alkaline Phosphatase Troponin I High Sens B-Natriuretic Peptide Total Protein Albumin Globulin Albumin/Globulin Ratio Procalcitonin Urine Color Urine Appearance Urine pH Ur Specific [place] Urine Protein Urine Glucose (UA) Urine Ketones Urine Blood Urine Nitrite Urine Bilirubin Urine Urobilinogen Ur Leukocyte Esterase Urine WBC (Auto) Urine RBC (Auto) U Hyaline Cast (Auto) U Epithel Cells (Auto) Urine Bacteria (Auto) Urine Yeast Nasal Screen MRSA (PCR) Anaplasma Smear Babesia Smear Lyme Disease IgG Ab Lyme Disease IgM Ab SARS-CoV-2 (PCR) Influenza Type A (PCR) Influenza Type B (PCR) RSV (RT-PCR) Bld Cult Staph aureus PCR Blood Culture MRSA PCR
--- NOTE | 2021-09-17 16:27 | Hospitalist Progress Note ---
Date of Service September 17, 2021 Assessment & Plan (1) SIRS (systemic inflammatory response syndrome): (2) Pulmonary edema: (3) Hypoxia: (4) Respiratory alkalosis: (5) Elevated troponin: (6) Generalized muscle weakness: (7) Hypomagnesemia: (8) Hypokalemia: (9) T2DM (type 2 diabetes mellitus): (10) Hypertension: Plan: This is a 66-year-old female who has significant past medical history of T2DM, HTN, HLD, GERD, fatty liver who presents to ED secondary to fever and weakness x2 days. Pt meets SIRS Criteria 2/2 to elevated temperature and tachycardia Pt also likely to have tachycardia due to missing her last two days of metoprolol Blood cultures x2 is positive for staph species Urine culture is pending She did receive broad spectrum vanco and cefepime in ED She received 2 L of IVF and now appears to be in Pulmonary edema, previous echos showed preserved function Infective endocarditis Has staph bacteremia likely secondary to infective endocarditis Echo of the heart showed-small sized apical wall motion abnormality with h ypokinesis of the segments, small mobile echodensity adherent to the atrial surface of the posterior mitral valve leaflet suggestive of possible vegetation, moderate TR, estimated systolic pulmonary pressure is 58 mmHg, the interatrial septum bows toward right atrium consistent with effect elevated left atrial pressure and a SHADE has been planned Continue IV vanco/cefepime pt with 2 days of myalgias, N, dry heaves and 1 episode of diarrhea ID has been consulted Hypoxia Respiratory alkalosis 2/2 to hyperventilation and pulm edema Acute Pulmonary edema Volume overload received 40mg IV lasix in ED and bipap started [place] in place, will monitor I and O and possibly repeat a dose later this evening cardiology consulted-appreciate input and recommendation bnp [id number] We will hold off any further Lasix as per cardiology Elevated troponin likely demand ischemia in setting of underlying illness/pulm edema trend trops cardiology consulted, Dr. Mtz will hold off an IV heparin for now, pt is not having CP, ECG w/o ischemic change Troponin remains mildly elevated and is secondary to demand ischemia Generalized weakness will need PT/OT when more medically stable Hypomagnesemia/Hypokalemia replete T2DM hold metformin Lantus/NovoLog per protocol Last A1c 6.4 on 09/01/2021 HTN hold felodipine for now continue metoprolol with dose given now due to missed dose last 2 days DVT ppx: SQ Lovenox Dispo: PCU FULL CODE PCP: [facility] Admission and Anticipated Discharge Date Admission Date: September 16, 2021 Subjective 09/17/2021 The patient was seen and examined in telemetry unit She has been feeling much better since admission She is off BiPAP and now saturating normally with nasal cannula at a rate of 4 L/min Denies any chest pain and/or palpitation, no fever and or chills Review of Systems Review of Systems: All systems reviewed and are unremarkable except as noted below Respiratory: Minimal shortness of breath at rest Physical Exam Physical Exam: Lying in bed with anxiety and minimal shortness of breath Constitutional: well developed, well nourished, + ill appearing and + obese Eyes: PERRL, conjunctivae normal, anicteric sclerae ENMT: external ear and nose normal, oropharynx normal Neck: trachea midline, no thyromegaly Respiratory: no respiratory distress Auscultation: + diminished lung sounds and + crackles (Bibasilar crackles) Cardiovascular: Rate/Rhythm: regular rate and regular rhythm; not tachycardic Heart Sounds: normal S1 and normal S2; no murmur Extremities: + edema (Trace edema bilaterally) Gastrointestinal (Abdomen): Inspection/Auscultation: normal bowel sounds; abdomen not distended Percussion/Palpation: abdomen soft; abdomen nontender Musculoskeletal: No acute arthritis in any joint Neurologic: Alert, awake and oriented x3. Focal sensory or no motor deficit appreciated Psychiatric: A+Ox3, euthymic affect Lymphatic: no cervical or axillary lymphadenopathy Results & Data Results & Data ([facility]) Vital Signs (Past 12 Hours) Vital Signs Temp Pulse Pulse Resp BP Pulse Ox 09/17/21 15:25 36.9 C 94 H 19 93/57 L 95 09/17/21 14:48 92 H 09/17/21 11:10 37.9 C H 53 L 16 96/59 L 96 09/17/21 08:25 111/66 09/17/21 08:00 93 H 09/17/21 07:44 37.8 C H 95 H 18 94/58 L 95 09/17/21 07:11 96 H 36 H 98 Laboratory Results Short CBC 09/17/21 Range/Units 05:27 WBC 8.42 (4.8-10.8) K/uL Hgb 10.8 L (12.0-16.0) g/dL Hct 33.7 L (37-47) % Plt Count 131 (130-400) K/uL BMP 09/17/21 05:27 Sodium 133 L Potassium 4.2 D Chloride 105 Carbon Dioxide 19 L BUN 17 Creatinine 0.65 Glucose 110 H Calcium 8.0 L Liver Function 09/17/21 Range/Units 05:27 Total Bilirubin 0.7 (0.2-1.0) mg/dl AST 117 H (13-39) U/L ALT 64 H (7-52) U/L Alkaline Phosphatase 43 (34-104) U/L Albumin 3.7 (3.4-5.0) gm/dl Medications Administered Current Inpatient Medications Acetaminophen (Acetaminophen 325 Mg Tab) 650 mg PO Q4H PRN PRN Reason: Pain or Fever Stop: 10/16/21 16:41 Last Admin: 09/17/21 11:07 Dose: 650 mg Documented by: Al Hydrox/Mg Hydrox/Simethicone (Aluminum/Magnesium Susp 30 Ml Udc) 15 ml PO Q4H PRN PRN Reason: Dyspepsia Stop: 10/16/21 16:41 Aspirin (Aspirin 81 Mg Ectab) 81 mg PO QAM [facility] Stop: 10/17/21 08:59 Last Admin: 09/17/21 08:21 Dose: 81 mg Documented by: Atorvastatin Calcium (Atorvastatin 40 Mg Tab) 40 mg PO DAILY [facility] Stop: 10/17/21 08:59 Last Admin: 09/17/21 08:22 Dose: 40 mg Documented by: Azelastine HCl (Azelastine Hcl 0.1% Nasal 200 Sprays/27,400 Mcg Btl) 1 sprays NA BID [facility] Stop: 10/16/21 20:59 Last Admin: 09/17/21 08:22 Dose: 1 sprays Documented by: Cetirizine HCl (Cetirizine Hcl 10 Mg Tablet) 10 mg PO QAM [facility] Stop: 10/17/21 08:59 Last Admin: 09/17/21 08:23 Dose: 10 mg Documented by: Dextrose (Dextrose 50% 50 Ml Syringe) 25 - 50 ml IV UD PRN; Protocol PRN Reason: Hypoglycemia Protocol Stop: 10/16/21 16:41 Enoxaparin Sodium (Enoxaparin Inj 40 Mg/0.4 Ml Syr) 40 mg SQ Q24H NANCY Stop: 10/16/21 21:59 Last Admin: 09/16/21 23:11 Dose: 40 mg Documented by: Fluoxetine HCl (Fluoxetine Hcl 20 Mg Cap) 40 mg PO QAM [facility] Stop: 10/17/21 08:59 Last Admin: 09/17/21 08:23 Dose: 40 mg Documented by: Furosemide (Furosemide 40 Mg/4 Ml Vial) 40 mg IV DAILY [facility]ANCY Stop: 10/17/21 08:59 Last Admin: 09/17/21 08:24 Dose: 40 mg Documented by: Glucagon (Glucagon For Inj 1 Mg Vial) 1 mg SQ UD PRN; Protocol PRN Reason: Hypoglycemia Protocol Stop: 10/16/21 16:41 Glucose (Glucose 10 Tabs/Tube) 4 - 8 tabs PO UD PRN; Protocol PRN Reason: Hypoglycemia Protocol Stop: 10/16/21 16:41 Glucose (Glucose 40% Gel 15 Gm Tube) 15 - 30 gm PO UD PRN; Protocol PRN Reason: Hypoglycemia Protocol Stop: 10/16/21 16:41 Cefazolin Sodium (Ancef 1000mg) 1,000 mg in 7.5 mls @ 2.5 mls/min IV Q6H NANCY Stop: 10/01/21 09:59 Last Admin: 09/17/21 15:19 Dose: 2.5 mls/min Documented by: Insulin Aspart (Insulin Aspart Per Unit) 0 units SC ACHS NANCY Stop: 10/16/21 16:41 Last Admin: 09/17/21 12:28 Dose: 3 units Documented by: Insulin Glargine (Insulin Glargine Solostar 100 Units/Ml 3 Ml Pen) 0 - 10 units SC BID NANCY Stop: 10/16/21 20:59 Last Admin: 09/17/21 08:27 Dose: Not Given Documented by: Magnesium Hydroxide (Magnesium Hydroxide Susp 30 Ml Udc) 30 ml PO Q12H PRN PRN Reason: Constipation Stop: 10/16/21 16:41 Metoprolol Succinate (Metoprolol Succ 50mg Ext Rel Tab) 50 mg PO QAM [facility]ANCY Stop: 10/16/21 16:59 Last Admin: 09/17/21 08:26 Dose: 50 mg Documented by: Miscellaneous (Carbohydrates For Hypoglycemia ) 15 - 30 gm PO UD PRN PRN Reason: Hypoglycemia Protocol Stop: 10/16/21 16:41 Montelukast Sodium (Montelukast Sodium 10 Mg Tablet) 10 mg PO DAILY [facility] Stop: 10/17/21 08:59 Last Admin: 09/17/21 08:27 Dose: 10 mg Documented by: Ondansetron HCl (Ondansetron Inj 2 Mg/Ml 2 Ml Vial) 4 mg IV Q6H PRN PRN Reason: Nausea Stop: 10/16/21 16:41 Pantoprazole Sodium (Pantoprazole 40 Mg Tab) 40 mg PO BID [facility] Stop: 10/16/21 20:59 Last Admin: 09/17/21 08:28 Dose: 40 mg Documented by: Polyethylene Glycol (Polyethylene (Miralax) 17 Gm Pack) 17 gm PO DAILY PRN PRN Reason: Constipation Stop: 10/16/21 16:41
[2021-09-17] MEDS: ENOXAPARIN INJ 40 MG/0.4 ML SYR SQ SCH (21:09)
[2021-09-18] MEDS: ceFAZolin 1000MG 1,000 MG/7.5 ML SYR IV SCH ×4 (03:16→21:04)
[2021-09-18] MEDS: FLUoxetine HCL 20 MG CAP PO SCH (08:15)
[2021-09-18] MEDS: METOPROLOL SUCC 50MG EXT REL TAB PO SCH (08:15)
[2021-09-18] MEDS: CETIRIZINE HCL 10 MG TABLET PO SCH (08:15)
[2021-09-18] MEDS: MONTELUKAST SODIUM 10 MG TABLET PO SCH (08:15)
[2021-09-18] MEDS: PANTOprazole 40 MG TAB PO SCH ×2 (08:15→21:04)
[2021-09-18] MEDS: FUROSEMIDE 40 MG/4 ML VIAL IV SCH (08:16)
[2021-09-18] MEDS: AZELASTINE HCL 0.1% NASAL 200 SPRAYS/27,400 MCG BTL SCH ×2 (08:16→21:03)
[2021-09-18] MEDS: ATORVASTATIN 40 MG TAB PO SCH (08:16)
[2021-09-18] MEDS: INSULIN ASPART PER UNIT SC SCH ×4 (08:16→20:53)
[2021-09-18] MEDS: ASPIRIN 81 MG ECTAB PO SCH (08:16)
[2021-09-18] MEDS: INSULIN GLARGINE SOLOSTAR 100 UNITS/ML 3 ML PEN SC SCH ×2 (08:17→21:02)
[2021-09-18 08:29] LABS: Hematocrit (blood only) 31.1 % (37-47); Hemoglobin 10.1 g/dL (12.0-16.0); Immature Granulocytes # (auto) 0.03 K/uL (0.00-0.02); Immature Granulocytes % (auto) 0.5 %; Lymphocytes # (auto) 0.54 K/uL (1.2-3.4); Mean Corpuscular Hemoglobin 26.9 pg (25-34); Mean Corpuscular Hgb Conc 32.5 g/dL (32-36); Mean Corpuscular Volume 82.9 fL (80-100); Mean Platelet Volume 11.6 fL (7.4-10.4); Monocytes # (auto) 0.43 K/uL (0.11-0.59); Monocytes % (auto) 7.2 %; Neutrophils % (auto) 83.3 %; Platelet Count 125 K/uL (130-400); RDW Coefficient of Variation 14.5 % (11.5-14.5); RDW Standard Deviation 44.7 fL (36.4-46.3); Red Blood Count 3.75 M/uL (4.2-5.4)
[2021-09-18 08:36] LABS: Albumin Globulin Ratio 1.2 (0.9-2); Albumin Level 3.5 gm/dl (3.4-5.0); BUN Creatinine Ratio 37.5 (10-20); Bilirubin,Total 0.8 mg/dl (0.2-1.0); Calcium 8.1 mg/dl (8.5-10.1); Creatinine Clr Calc Pharmacy 100.3 ml/min; Est GFR (African American) 118.5 ml/min; Est GFR (Non-African American) 102.2 ml/min; Potassium 4.2 mmol/L (3.5-5.1); Total Protein 6.5 gm/dl (6.0-8.3)
--- NOTE | 2021-09-18 13:34 | Hospitalist Progress Note ---
Date of Service September 18, 2021 Assessment & Plan (1) SIRS (systemic inflammatory response syndrome): (2) Pulmonary edema: (3) Hypoxia: (4) Respiratory alkalosis: (5) Elevated troponin: (6) Generalized muscle weakness: (7) Hypomagnesemia: (8) Hypokalemia: (9) T2DM (type 2 diabetes mellitus): (10) Hypertension: Plan: This is a 66-year-old female who has significant past medical history of T2DM, HTN, HLD, GERD, fatty liver who presents to ED secondary to fever and weakness x2 days. Pt meets SIRS Criteria 2/2 to elevated temperature and tachycardia Pt also likely to have tachycardia due to missing her last two days of metoprolol Blood cultures x2 is positive for staph species Urine culture is pending She did receive broad spectrum vanco and cefepime in ED She received 2 L of IVF and now appears to be in Pulmonary edema, previous echos showed preserved function Infective endocarditis Has staph bacteremia likely secondary to infective endocarditis Echo of the heart showed-small sized apical wall motion abnormality with h ypokinesis of the segments, small mobile echodensity adherent to the atrial surface of the posterior mitral valve leaflet suggestive of possible vegetation, moderate TR, estimated systolic pulmonary pressure is 58 mmHg, the interatrial septum bows toward right atrium consistent with effect elevated left atrial pressure and a SHADE has been planned Continue IV vanco/cefepime pt with 2 days of myalgias, N, dry heaves and 1 episode of diarrhea ID has been consulted-appreciate input and recommendation We will get thoracic spine MRI to rule out any paravertebral abscess/discitis and or osteomyelitis Hypoxia Respiratory alkalosis 2/2 to hyperventilation and pulm edema Acute Pulmonary edema Volume overload received 40mg IV lasix in ED and bipap started [place] in place, will monitor I and O and possibly repeat a dose later this evening cardiology consulted-appreciate input and recommendation bnp 1221 We will hold off any further Lasix as per cardiology Clinically a little better Elevated troponin likely demand ischemia in setting of underlying illness/pulm edema trend trops cardiology consulted, Dr. Mtz will hold off an IV heparin for now, pt is not having CP, ECG w/o ischemic change Troponin remains mildly elevated and is secondary to demand ischemia Generalized weakness will need PT/OT when more medically stable Hypomagnesemia/Hypokalemia replete T2DM hold metformin Lantus/NovoLog per protocol Last A1c 6.4 on 09/01/2021 HTN hold felodipine for now continue metoprolol with dose given now due to missed dose last 2 days DVT ppx: SQ Lovenox Dispo: PCU FULL CODE PCP: [facility] Admission and Anticipated Discharge Date Admission Date: September 16, 2021 Subjective 09/17/2021 The patient was seen and examined in telemetry unit She has been feeling much better since admission She is off BiPAP and now saturating normally with nasal cannula at a rate of 4 L/min Denies any chest pain and/or palpitation, no fever and or chills 09/18/2021 The patient was seen and examined in telemetry unit She feels a little better today She does not have any skin break or skin injury or even any boil as a possible source of staph bacteremia Complains of pain in the lower thoracic spine level Denies any chest pain, palpitation or shortness of breath Review of Systems Review of Systems: All systems reviewed and are unremarkable except as noted below Respiratory: Minimal shortness of breath at rest Musculoskeletal: Significant tenderness noted lower thoracic spine on palpation Integumentary: No break in skin or skin lesions found Physical Exam Physical Exam: Lying in bed with anxiety and minimal shortness of breath Constitutional: well developed, well nourished, + ill appearing and + obese Eyes: PERRL, conjunctivae normal, anicteric sclerae ENMT: external ear and nose normal, oropharynx normal Neck: trachea midline, no thyromegaly Respiratory: no respiratory distress Auscultation: + diminished lung sounds and + crackles (Bibasilar crackles) Cardiovascular: Rate/Rhythm: regular rate and regular rhythm; not tachycardic Heart Sounds: normal S1 and normal S2; no murmur Extremities: + edema (Trace edema bilaterally) Gastrointestinal (Abdomen): Inspection/Auscultation: normal bowel sounds; ab domen not distended Percussion/Palpation: abdomen soft; abdomen nontender Musculoskeletal: Localized tenderness lower thoracic spine otherwise no acute arthritis involving any joint Neurologic: normal touch/pain/proprioception Psychiatric: A+Ox3, euthymic affect Lymphatic: no cervical or axillary lymphadenopathy Results & Data Results & Data ([facility]) Vital Signs (Past 12 Hours) Vital Signs Temp Pulse Resp BP Pulse Ox 09/18/21 11:21 36.8 C 98 H 18 114/71 95 09/18/21 07:41 37 C 97 H 18 118/72 95 09/18/21 03:20 37.1 C 101 H 18 112/67 94 Laboratory Results Short CBC 09/18/21 Range/Units 07:28 WBC 6.00 (4.8-10.8) K/uL Hgb 10.1 L (12.0-16.0) g/dL Hct 31.1 L (37-47) % Plt Count 125 L (130-400) K/uL BMP 09/18/21 07:28 Sodium 131 L Potassium 4.2 Chloride 101 Carbon Dioxide 21 BUN 18 Creatinine 0.48 L Glucose 88 Calcium 8.1 L Liver Function 09/18/21 Range/Units 07:28 Total Bilirubin 0.8 (0.2-1.0) mg/dl AST 76 H (13-39) U/L ALT 50 (7-52) U/L Alkaline Phosphatase 43 (34-104) U/L Albumin 3.5 (3.4-5.0) gm/dl Medications Administered Current Inpatient Medications Acetaminophen (Acetaminophen 325 Mg Tab) 650 mg PO Q4H PRN PRN Reason: Pain or Fever Stop: 10/16/21 16:41 Last Admin: 09/17/21 17:32 Dose: 650 mg Documented by: Al Hydrox/Mg Hydrox/Simethicone (Aluminum/Magnesium Susp 30 Ml Udc) 15 ml PO Q4H PRN PRN Reason: Dyspepsia Stop: 10/16/21 16:41 Aspirin (Aspirin 81 Mg Ectab) [facility] [place] Stop: 10/17/21 08:59 Last Admin: 09/18/21 08:16 Dose: 81 mg Documented by: Atorvastatin Calcium (Atorvastatin 40 Mg Tab) 40 mg PO DAILY [facility] Stop: 10/17/21 08:59 Last Admin: 09/18/21 08:16 Dose: 40 mg Documented by: Azelastine HCl (Azelastine Hcl 0.1% Nasal 200 Sprays/27,400 Mcg Btl) 1 sprays NA BID [facility] Stop: 10/16/21 20:59 Last Admin: 09/18/21 08:16 Dose: 1 sprays Documented by: Cetirizine HCl (Cetirizine Hcl 10 Mg Tablet) 10 mg PO QAM [facility] Stop: 10/17/21 08:59 Last Admin: 09/18/21 08:15 Dose: 10 mg Documented by: Dextrose (Dextrose 50% 50 Ml Syringe) 25 - 50 ml IV UD PRN; Protocol PRN Reason: Hypoglycemia Protocol Stop: 10/16/21 16:41 Enoxaparin Sodium (Enoxaparin Inj 40 Mg/0.4 Ml Syr) 40 mg SQ Q24H NANCY Stop: 10/16/21 21:59 Last Admin: 09/17/21 21:09 Dose: 40 mg Documented by: Fluoxetine HCl (Fluoxetine Hcl 20 Mg Cap) 40 mg PO QAM [facility] Stop: 10/17/21 08:59 Last Admin: 09/18/21 08:15 Dose: 40 mg Documented by: Furosemide (Furosemide 40 Mg/4 Ml Vial) 40 mg IV DAILY [facility] Stop: 10/17/21 08:59 Last Admin: 09/18/21 08:16 Dose: 40 mg Documented by: Glucagon (Glucagon For Inj 1 Mg Vial) 1 mg SQ UD PRN; Protocol PRN Reason: Hypoglycemia Protocol Stop: 10/16/21 16:41 Glucose (Glucose 10 Tabs/Tube) 4 - 8 tabs PO UD PRN; Protocol PRN Reason: Hypoglycemia Protocol Stop: 10/16/21 16:41 Glucose (Glucose 40% Gel 15 Gm Tube) 15 - 30 gm PO UD PRN; Protocol PRN Reason: Hypoglycemia Protocol Stop: 10/16/21 16:41 Cefazolin Sodium (Ancef 1000mg) 1,000 mg in 7.5 mls @ 2.5 mls/min IV Q6H NANCY Stop: 10/01/21 09:59 Last Admin: 09/18/21 11:54 Dose: 2.5 mls/min Documented by: Insulin Aspart (Insulin Aspart Per Unit) 0 units SC ACHS NANCY Stop: 10/16/21 16:41 Last Admin: 09/18/21 11:54 Dose: Not Given Documented by: Insulin Glargine (Insulin Glargine Solostar 100 Units/Ml 3 Ml Pen) 0 - 10 units SC BID [facility] Stop: 10/16/21 20:59 Last Admin: 09/18/21 08:17 Dose: Not Given Documented by: Magnesium Hydroxide (Magnesium Hydroxide Susp 30 Ml Udc) 30 ml PO Q12H PRN PRN Reason: Constipation Stop: 10/16/21 16:41 Metoprolol Succinate (Metoprolol Succ 50mg Ext Rel Tab) 50 mg PO QAM [facility] Stop: 10/16/21 16:59 Last Admin: 09/18/21 08:15 Dose: 50 mg Documented by: Miscellaneous (Carbohydrates For Hypoglycemia ) 15 - 30 gm PO UD PRN PRN Reason: Hypoglycemia Protocol Stop: 10/16/21 16:41 Montelukast Sodium (Montelukast Sodium 10 Mg Tablet) 10 mg PO DAILY [facility] Stop: 10/17/21 08:59 Last Admin: 09/18/21 08:15 Dose: 10 mg Documented by: Ondansetron HCl (Ondansetron Inj 2 Mg/Ml 2 Ml Vial) 4 mg IV Q6H PRN PRN Reason: Nausea Stop: 10/16/21 16:41 Pantoprazole Sodium (Pantoprazole 40 Mg Tab) 40 mg PO BID [facility] Stop: 10/16/21 20:59 Last Admin: 09/18/21 08:15 Dose: 40 mg Documented by: Polyethylene Glycol (Polyethylene (Miralax) 17 Gm Pack) 17 gm PO DAILY PRN PRN Reason: Constipation Stop: 10/16/21 16:41
--- NOTE | 2021-09-18 13:36 | Cardiology Progress Note ---
Date of Service September 18, 2021 Assessment & Plan (1) Endocarditis of mitral valve: (2) Staphylococcus aureus bacteremia: (3) Sepsis: (4) Non-ST elevation (NSTEMI) myocardial infarction: (5) Back pain: Plan: Recommend thoracic spine MRI to exclude epidural abscess in the setting of persistent staph aureus bacteremia. Echocardiogram revealing a small mitral valve vegetation consistent with endocarditis. Sensitivities reveal methicillin sensitive organism. Continue antibiotics per direction of infectious disease. Antibiotics have not cleared with repeat cultures drawn today. If she is unable to clear her bloodstream, she may require transfer to tertiary care center and/or repeat imaging. Echocardiogram also demonstrating a new apical wall motion abnormality suggesting underlying obstructive coronary disease. Elevated troponin secondary to demand ischemia versus plaque rupture event and subsequent wall motion abnormality. I would not initiate IV heparin with evidence of endocarditis at this time. Patient without anginal symptoms. She received dose of IV Lasix this morning. Monitor fluid balance, daily weight. Repeat portable chest x-ray today. Reevaluate volume status daily determine need for IV diuretics, however, the setting of severe sepsis prefer to keep her euvolemic to slightly hypervolemic. Prognosis is guarded. Admission and Anticipated Discharge Date Admission Date: September 16, 2021 Subjective Patient seen examined the bedside. No recurrent fevers overnight. White blood cell count within normal range. Patient complaining of mid thoracic discomfort which she attributes to "muscle ache". No chest pain or shortness of breath. Blood cultures demonstrating methicillin sensitive Staph aureus. Blood cultures drawn yesterday are again positive for staph aureus. Review of Systems Review of Systems: All systems reviewed & are unremarkable except as noted in Subjective Physical Exam Constitutional: well nourished and + ill appearing; no acute distress Respiratory: normal respiratory effort; no respiratory distress and no retractions Auscultation: + rales (Scant Rales at the bases bilateral.); no crackles, no rhonchi and no wheezes Cardiovascular: Rate/Rhythm: regular rate and regular rhythm Heart Sounds: normal S1 and normal S2; no murmur Vessels: radial pulses present; no JVD and no carotid bruit Gastrointestinal (Abdomen): Inspection/Auscultation: abdomen normal to inspection and normal bowel sounds; abdomen not distended Percussion/Palpation: + abdomen rigid; abdomen nontender, no guarding and + abdomen not soft Neurologic: CN's II-XI intact bilaterally and moves all extremities; no focal motor deficits Psychiatric: Orientation: alert and oriented x 3 Results & Data ([facility]) Vital Signs (Past 12 Hours) Vital Signs Temp Pulse Resp BP Pulse Ox 09/18/21 11:21 36.8 C 98 H 18 114/71 95 09/18/21 07:41 37 C 97 H 18 118/72 95 09/18/21 03:20 37.1 C 101 H 18 112/67 94
--- NOTE | 2021-09-18 13:55 | XRay Report ---
XR chest 1V portable HISTORY: 66 years-old Female hypoxia acute hypoxia COMPARISON: Chest radiograph 09/16/2021 TECHNIQUE: Portable AP view of the chest FINDINGS: The cardiac silhouette is again enlarged. Pulmonary vascular congestion with interstitial coarsening. No pneumothorax, pleural effusion or lobar airspace consolidation. Degenerative changes of the shoul ders and spine. Right shoulder rotator cuff calcific tendinosis. IMPRESSION: Cardiomegaly with pulmonary vascular congestion. ACT 112: Negative or not required by law. The above report was generated using voice recognition software. It may contain grammatical, syntax o r spelling errors. Electronically signed by: Ken Harrington M.D. 09/18/2021 1:53 PM
[2021-09-18] MEDS ORDERED: GADOBUTROL 65ML VIAL IV ONE (18:49)
--- NOTE | 2021-09-18 19:49 | Magnetic Resonance Report ---
MR thoracic spine wo/w con HISTORY: 66 years-old Female R/O Osteomyelitis/Abscess acute mid back pain with clinical concern for discitis. COMPARISON: CTA chest 09/16/2021 TECHNIQUE: Multiplanar multisequence MRI of the thoracic spine was obtained both with and without the use of 7.2 cc Gadavist FINDINGS: The imaged extraspinal structures appear unremarkable. There are trace pleural effusions. Normal sign al within the thoracic spinal cord with exception of minimal cystic central dilation of the thoracic spinal cord at the level of T10 measuring less than 1 mm. The conus medullaris terminates at L1-L2. N o acute fracture, subluxation, endplate erosion or destructive bone lesions. There is mild multilevel intervertebral disc space narrowing with spondylitic spurring and facet arthrosis. No significant an nular disc bulging, central canal or neural foraminal narrowing. No epidural fluid collections. The s tudy is motion degraded. Mild degenerative changes are noted within the lumbar spine with mid to lowe r lumbar annular disc bulging. No abnormal enhancement. Thoracic findings are better seen on the CT c hest study from 09/16/2021. IMPRESSION: 1. Unremarkable MRI of the thoracic spine. No bone marrow edema or evidence of discitis/osteomyelitis . 2. No abnormal enhancement. ACT 112: Negative or not required by law. The above report was generated using voice recognition software. It may contain grammatical, syntax o r spelling errors. Electronically signed by: Ken Harrington M.D. 09/18/2021 7:47 PM
[2021-09-18] MEDS: ENOXAPARIN INJ 40 MG/0.4 ML SYR SQ SCH (21:04)
[2021-09-19] MEDS: ceFAZolin 1000MG 1,000 MG/7.5 ML SYR IV SCH (03:35)
[2021-09-19 04:28] LABS: Creatinine Clr Calc Pharmacy 100.3 ml/min; Est GFR (African American) 118.5 ml/min; Est GFR (Non-African American) 102.2 ml/min
[2021-09-19] MEDS: ACETAMINOPHEN 325 MG TAB PO PRN ×2 (08:21→15:00)
[2021-09-19] MEDS: METOPROLOL SUCC 50MG EXT REL TAB PO SCH (08:21)
[2021-09-19] MEDS: MONTELUKAST SODIUM 10 MG TABLET PO SCH (08:21)
[2021-09-19] MEDS: PANTOprazole 40 MG TAB PO SCH ×2 (08:21→20:41)
[2021-09-19] MEDS: FLUoxetine HCL 20 MG CAP PO SCH (08:21)
[2021-09-19] MEDS: AZELASTINE HCL 0.1% NASAL 200 SPRAYS/27,400 MCG BTL SCH ×2 (08:22→20:45)
[2021-09-19] MEDS: CETIRIZINE HCL 10 MG TABLET PO SCH (08:22)
[2021-09-19] MEDS: ASPIRIN 81 MG ECTAB PO SCH (08:22)
[2021-09-19] MEDS: ATORVASTATIN 40 MG TAB PO SCH (08:22)
[2021-09-19] MEDS: INSULIN ASPART PER UNIT SC SCH ×4 (08:54→20:40)
[2021-09-19] MEDS: INSULIN GLARGINE SOLOSTAR 100 UNITS/ML 3 ML PEN SC SCH ×3 (08:59→20:44)
--- NOTE | 2021-09-19 11:05 | Hospitalist Progress Note ---
Date of Service September 19, 2021 Assessment & Plan (1) SIRS (systemic inflammatory response syndrome): (2) Pulmonary edema: (3) Hypoxia: (4) Respiratory alkalosis: (5) Elevated troponin: (6) Generalized muscle weakness: (7) Hypomagnesemia: (8) Hypokalemia: (9) T2DM (type 2 diabetes mellitus): (10) Hypertension: Plan: This is a 66-year-old female who has significant past medical history of T2DM, HTN, HLD, GERD, fatty liver who presents to ED secondary to fever and weakness x2 days. Pt meets SIRS Criteria 2/2 to elevated temperature and tachycardia Pt also likely to have tachycardia due to missing her last two days of metoprolol Blood cultures x2 is positive for staph species Urine culture is pending She did receive broad spectrum vanco and cefepime in ED She received 2 L of IVF and now appears to be in Pulmonary edema, previous echos showed preserved function Infective endocarditis Has staph bacteremia likely secondary to infective endocarditis Echo of the heart showed-small sized apical wall motion abnormality with h ypokinesis of the segments, small mobile echodensity adherent to the atrial surface of the posterior mitral valve leaflet suggestive of possible vegetation, moderate TR, estimated systolic pulmonary pressure is 58 mmHg, the interatrial septum bows toward right atrium consistent with effect elevated left atrial pressure and a SHADE has been planned Continue IV vanco/cefepime-changed to intravenous cefazolin pt with 2 days of myalgias, N, dry heaves and 1 episode of diarrhea ID has been consulted-appreciate input and recommendation MRI of the thoracic spine did not show any abnormalities Repeat transthoracic echo showed increased vegetation as below: -Limited views were obtained, there is severe mitral annular calcification, there is a large vegetation or mass of the mitral valve, mobile posterior mitral valve vegetation prolapsing into the left ventricle and left atrium, there is mild mitral regurgitation and trace due to recent regurgitation. Compared with study dated 09/17/2021 large mitral valve vegetation and trace aortic regurgitation now present Discussed with ice guard inspector who recommended the patient should be transferred to tertiary care center for possible cardiac surgery Repeat blood culture is positive for staph aureus in clusters-PCR is positive for staph aureus and is coagulase-negative. Sensitive to oxacillin Discussed with the pharmacist and the cefazolin dose has been increased to 2 g intravenously-we will discuss with the ID specialist for further recommendation Discussed with cardiothoracic surgeon Dr. Paniagua at [facility] and the patient was accepted to be transferred Discussed with the patient and she will be transferred as soon as there will be a bed available Hypoxia Respiratory alkalosis 2/2 to hyperventilation and pulm edema Acute Pulmonary edema Volume overload received 40mg IV lasix in ED and bipap started [place] in place, will monitor I and O and possibly repeat a dose later this evening cardiology consulted-appreciate input and recommendation bnp [id number] We will hold off any further Lasix as per cardiology Clinically much better today Requiring 2 L of oxygen to maintain saturation Elevated troponin-NSTEMI likely demand ischemia in setting of underlying illness/pulm edema trend trops cardiology consulted, Dr. Mtz will hold off an IV heparin for now, pt is not having CP, ECG w/o ischemic change Troponin remains mildly elevated and is secondary to demand ischemia Likely has non-ST elevation IN given the echo findings Generalized weakness will need PT/OT when more medically stable Hypomagnesemia/Hypokalemia replete T2DM hold metformin Lantus/NovoLog per protocol Last A1c 6.4 on 09/01/2021 HTN hold felodipine for now continue metoprolol with dose given now due to missed dose last 2 days DVT ppx: SQ Lovenox Dispo: PCU FULL CODE PCP: Nemesio She will be transferred to [facility] this afternoon Admission and Anticipated Discharge Date Admission Date: September 16, 2021 Subjective 09/17/2021 The patient was seen and examined in telemetry unit She has been feeling much better since admission She is off BiPAP and now saturating normally with nasal cannula at a rate of 4 L/min Denies any chest pain and/or palpitation, no fever and or chills 09/18/2021 The patient was seen and examined in telemetry unit She feels a little better today She does not have any skin break or skin injury or even any boil as a possible source of staph bacteremia Complains of pain in the lower thoracic spine level Denies any chest pain, palpitation or shortness of breath 09/19/2021 The patient was seen and examined in telemetry unit She has been feeling much better today and is out of bed on a chair Denies any chest pain and/or palpitation No fever and no chills-repeat blood cultures are positive for staph aureus in clusters She cannot have SHADE today as she ate breakfast but the limited transthoracic echo was repeated as below Has been requiring 2 L to maintain saturation Review of Systems Review of Systems: All systems reviewed and are unremarkable except as noted below Respiratory: Minimal shortness of breath at rest Musculoskeletal: Significant tenderness noted lower thoracic spine on palpation. Tenderness is better Integumentary: No break in skin or skin lesions found Physical Exam Physical Exam: Sitting on a chair without any acute distress Constitutional: well developed, well nourished, + ill appearing and + obese Eyes: PERRL, conjunctivae normal, anicteric sclerae ENMT: external ear and nose normal, oropharynx normal Neck: trachea midline, no thyromegaly Respiratory: no respiratory distress Auscultation: + diminished lung sounds and + crackles (Bibasilar crackles) Cardiovascular: Rate/Rhythm: regular rate and regular rhythm; not tachycardic Heart Sounds: normal S1, normal S2 and + murmur (1/6 to 2/6 ESM over precordium) Extremities: + edema (Trace edema bilaterally) Gastrointestinal (Abdomen): Inspection/Auscultation: normal bowel sounds; abdomen not distended Percussion/Palpation: abdomen soft; abdomen nontender Neurologic: normal touch/pain/proprioception Psychiatric: A+Ox3, euthymic affect Lymphatic: no cervical or axillary lymphadenopathy Results & Data Results & Data ([facility]) Vital Signs (Past 12 Hours) Vital Signs Temp Pulse Pulse Resp BP BP Pulse Ox 09/19/21 08:03 36.4 C L 85 18 110/65 97 09/19/21 03:00 36.7 C 97 H 18 127/72 96 09/18/21 22:54 37.1 C 96 H 16 109/62 94 09/18/21 22:51 97 H Laboratory Results BMP 09/19/21 03:22 Creatinine 0.48 L Medications Administered Current Inpatient Medications Acetaminophen (Acetaminophen 325 Mg Tab) 650 mg PO Q4H PRN PRN Reason: Pain or Fever Stop: 10/16/21 16:41 Last Admin: 09/19/21 08:21 Dose: 650 mg Documented by: Al Hydrox/Mg Hydrox/Simethicone (Aluminum/Magnesium Susp 30 Ml Udc) 15 ml PO Q4H PRN PRN Reason: Dyspepsia Stop: 10/16/21 16:41 Aspirin (Aspirin 81 Mg Ectab) 81 mg PO QAM [facility] Stop: 10/17/21 08:59 Last Admin: 09/19/21 08:22 Dose: 81 mg Documented by: Atorvastatin Calcium (Atorvastatin 40 Mg Tab) 40 mg PO DAILY NANCY Stop: 10/17/21 08:59 Last Admin: 09/19/21 08:22 Dose: 40 mg Documented by: Azelastine HCl (Azelastine Hcl 0.1% Nasal 200 Sprays/27,400 Mcg Btl) 1 sprays NA BID NANCY Stop: 10/16/21 20:59 Last Admin: 09/19/21 08:22 Dose: 1 sprays Documented by: Cetirizine HCl (Cetirizine Hcl 10 Mg Tablet) 10 mg PO QAM [facility] Stop: 10/17/21 08:59 Last Admin: 09/19/21 08:22 Dose: 10 mg Documented by: Dextrose (Dextrose 50% 50 Ml Syringe) 25 - 50 ml IV UD PRN; Protocol PRN Reason: Hypoglycemia Protocol Stop: 10/16/21 16:41 Enoxaparin Sodium (Enoxaparin Inj 40 Mg/0.4 Ml Syr) 40 mg SQ Q24H NANCY Stop: 10/16/21 21:59 Last Admin: 09/18/21 21:04 Dose: 40 mg Documented by: Fluoxetine HCl (Fluoxetine Hcl 20 Mg Cap) 40 mg PO QAM [facility] Stop: 10/17/21 08:59 Last Admin: 09/19/21 08:21 Dose: 40 mg Documented by: Furosemide (Furosemide 40 Mg/4 Ml Vial) 40 mg IV DAILY NANCY Stop: 10/17/21 08:59 Last Admin: 09/18/21 08:16 Dose: 40 mg Documented by: Glucagon (Glucagon For Inj 1 Mg Vial) 1 mg SQ UD PRN; Protocol PRN Reason: Hypoglycemia Protocol Stop: 10/16/21 16:41 Glucose (Glucose 10 Tabs/Tube) 4 - 8 tabs PO UD PRN; Protocol PRN Reason: Hypoglycemia Protocol Stop: 10/16/21 16:41 Glucose (Glucose 40% Gel 15 Gm Tube) 15 - 30 gm PO UD PRN; Protocol PRN Reason: Hypoglycemia Protocol Stop: 10/16/21 16:41 Cefazolin Sodium (Ancef 2000mg) 2,000 mg in 15 mls @ 3.75 mls/min IV Q8H NANCY Stop: 10/31/21 09:59 Insulin Aspart (Insulin Aspart Per Unit) 0 units SC ACHS NANCY Stop: 10/16/21 16:41 Last Admin: 09/19/21 08:54 Dose: Not Given Documented by: Insulin Glargine (Insulin Glargine Solostar 100 Units/Ml 3 Ml Pen) 0 - 10 units SC BID NANCY Stop: 10/16/21 20:59 Last Admin: 09/19/21 08:59 Dose: Not Given Documented by: Magnesium Hydroxide (Magnesium Hydroxide Susp 30 Ml Udc) 30 ml PO Q12H PRN PRN Reason: Constipation Stop: 10/16/21 16:41 Metoprolol Succinate (Metoprolol Succ 50mg Ext Rel Tab) 50 mg PO QAM NANCY Stop: 10/16/21 16:59 Last Admin: 09/19/21 08:21 Dose: 50 mg Documented by: Miscellaneous (Carbohydrates For Hypoglycemia ) 15 - 30 gm PO UD PRN PRN Reason: Hypoglycemia Protocol Stop: 10/16/21 16:41 Montelukast Sodium (Montelukast Sodium 10 Mg Tablet) 10 mg PO DAILY NANCY Stop: 10/17/21 08:59 Last Admin: 09/19/21 08:21 Dose: 10 mg Documented by: Ondansetron HCl (Ondansetron Inj 2 Mg/Ml 2 Ml Vial) 4 mg IV Q6H PRN PRN Reason: Nausea Stop: 10/16/21 16:41 Pantoprazole Sodium (Pantoprazole 40 Mg Tab) 40 mg PO BID NANCY Stop: 10/16/21 20:59 Last Admin: 09/19/21 08:21 Dose: 40 mg Documented by: Polyethylene Glycol (Polyethylene (Miralax) 17 Gm Pack) 17 gm PO DAILY PRN PRN Reason: Constipation Stop: 10/16/21 16:41
[2021-09-19] MEDS: ceFAZolin 2000MG 2,000 MG/15 ML SYR IV SCH ×2 (11:26→18:48)
--- NOTE | 2021-09-19 12:28 | Cardiology Progress Note ---
Date of Service September 19, 2021 Assessment & Plan (1) Endocarditis of mitral valve: (2) Staphylococcus aureus bacteremia: (3) Sepsis: (4) Non-ST elevation (NSTEMI) myocardial infarction: (5) Back pain: Plan: MRI performed yesterday without evidence of discitis or abscess. Cultures remain positive since admission despite antibiotic therapy. Preliminary review of bedside 2D transthoracic echocardiogram demonstrates a large mitral valve vegetation which prolapses into both the atrium and ventricle. This is a change from her echocardiogram 2 days ago. There is no significant mitral regurgitation. There is evidence of trace aortic regurgitation today. Recommend transfer to tertiary care facility for cardiothoracic surgery evaluation. With evidence NSTEMI and new apical wall motion abnormality, cardiac catheterization will be required prior to surgery. I would not initiate IV heparin with evidence of endocarditis at this time. Appears euvolemic today. Monitor fluid balance, daily weight.Reevaluate volume status daily determine need for IV diuretics, however, the setting of severe sepsis prefer to keep her euvolemic to slightly hypervolemic. Prognosis is guarded. Admission and Anticipated Discharge Date Admission Date: September 16, 2021 Subjective Patient seen and examined bedside. Afebrile over the past 36 hours. Un fortunate, blood cultures have not cleared. Culture performed drawn yesterday, 09/18 with gram-positive cocci in clusters. Patient consumed breakfast this morning. Review of Systems Review of Systems: All systems reviewed & are unremarkable except as noted in Subjective Physical Exam Constitutional: well nourished and + ill appearing; no acute distress Respiratory: normal respiratory effort; no respiratory distress and no retractions Auscultation: + rales (Scant Rales at the bases bilateral.); no crackles, no rhonchi and no wheezes Cardiovascular: Rate/Rhythm: regular rate and regular rhythm Heart Sounds: normal S1 and normal S2; no murmur Vessels: radial pulses present; no JVD and no carotid bruit Gastrointestinal (Abdomen): Inspection/Auscultation: abdomen normal to inspection and normal bowel sounds; abdomen not distended Percussion/Palpation: + abdomen rigid; abdomen nontender, no guarding and + abdomen not soft Neurologic: CN's II-XI intact bilaterally and moves all extremities; no focal motor deficits Psychiatric: Orientation: alert and oriented x 3 Results & Data ([facility]) Vital Signs (Past 12 Hours) Vital Signs Temp Pulse Pulse Resp BP BP Pulse Ox 09/19/21 11:41 36.5 C 75 19 109/65 97 09/19/21 08:03 36.4 C L 85 18 110/65 97 09/19/21 03:00 36.7 C 97 H 18 127/72 96
[2021-09-19 12:35] LABS: BUN Creatinine Ratio 27.3 (10-20); Calcium 8.4 mg/dl (8.5-10.1); Creatinine Clr Calc Pharmacy 86.7 ml/min; Est GFR (African American) 113.3 ml/min; Est GFR (Non-African American) 97.7 ml/min; Magnesium 2.4 mg/dl (1.7-2.4); Potassium 3.6 mmol/L (3.5-5.1)
[2021-09-19 12:36] LABS: Basophils # (auto) 0.01 K/uL (0-0.2); Basophils % (auto) 0.1 %; Eosinophils # (auto) 0.02 K/uL (0-0.5); Eosinophils % (auto) 0.3 %; Hematocrit (blood only) 33.6 % (37-47); Hemoglobin 11.2 g/dL (12.0-16.0); Immature Granulocytes # (auto) 0.02 K/uL (0.00-0.02); Immature Granulocytes % (auto) 0.3 %; Lymphocytes # (auto) 0.99 K/uL (1.2-3.4); Lymphocytes % (auto) 14.4 %; Mean Corpuscular Hemoglobin 27.5 pg (25-34); Mean Corpuscular Hgb Conc 33.3 g/dL (32-36); Mean Corpuscular Volume 82.4 fL (80-100); Mean Platelet Volume 10.9 fL (7.4-10.4); Monocytes # (auto) 0.77 K/uL (0.11-0.59); Monocytes % (auto) 11.2 %; Neutrophils # (auto) 5.07 K/uL (1.4-6.5); Neutrophils % (auto) 73.7 %; Platelet Count 149 K/uL (130-400); RDW Coefficient of Variation 14.3 % (11.5-14.5); RDW Standard Deviation 43.4 fL (36.4-46.3); Red Blood Count 4.08 M/uL (4.2-5.4); White Blood Count 6.88 K/uL (4.8-10.8)
--- NOTE | 2021-09-19 12:42 | Discharge Summary ---
Date of Service September 19, 2021 Admission HPI Per Admitting Provider This is a 66-year-old female who has significant past medical history of T2DM, HTN, HLD, GERD, fatty liver who presents to ED secondary to fever and weakness x2 days. She was in her normal state of health until 2 days ago. She recently had a follow-up with her PCP and everything was going as normal. On Monday she developed flulike symptoms with myalgias, generalized malaise, fever with T-max of 101, nausea and dry heaves. Overall she had poor appetite. She denies any sick contacts. Her granddaughter did have influenza but this was several weeks ago. This morning she states that she, "rolled out of bed." She denies hitting her head or losing consciousness. She was able to get herself up into the bathroom. She did have 1 episode of diarrhea today. When her son came to check on her she was having difficulty formulating sentences, not making sense and was too weak to get off of the toilet. EMS was summoned. Per report patient was febrile in route. She was also febrile in ED. When she presented to ED she was febrile and tachycardic and therefore sepsis pathway was initiated. She received 2 L of IV fluid bolus while in ED as well as broad-spectrum antibiotics with vancomycin and cefepime. Initial lab work revealed WBC 11.54, H&H 12.4 and 37.2, sodium 131, K3.0, CO2 18, anion gap 16, BUN/creatinine 18 and 0.86 respectively, glucose 208, lactate 2.3, mag 1.3, troponin thousand and procalci tonin 7.53. Her initial urinalysis does have +1 leukocyte esterase and bacteria. She was negative for influenza and SARS-CoV-2. Head CT was negative for any acute abnormality. She underwent chest CTA and CT abdomen pelvis which was negative for PE but did reveal moderate interstitial pulmonary edema. She was then subsequently placed on 40 mg of IV Lasix. Her ABG revealed an respiratory alkalosis. She was placed on BiPAP due to the pulmonary edema. She did receive some potassium replacement in ED as well. Her repeat troponin was 3427. She denies any recent chest pain or shortness of breath. She states she has a Basset hound and is very active walking her Dog. She denies any exertional chest pain when walking her dog. She further denies any orthopnea, PND, lower extremity edema or weight gain. She denies any prior history of CAD or CHF. She does admit to sweats this morning but denies any chills, lightheadedness, dizziness, syncope, palpitations, cough, URI symptoms, melena, hematochezia, dysuria, increased urgency or frequency with urination, and hematuria. Admission Exam Per Admitting Provider Physical Exam: Constitutional: WD/WN, acute ill F, vitals as above, +increased respirations, sitting up in bed, pleasant, conversing easily Head: Normocephalic, Atraumatic Eyes: PERRL, conjunctivae normal, anicteric sclerae ENMT: external ear and nose normal, oropharynx normal Neck: trachea midline, no thyromegaly normal visual inspection Respiratory: increased respiratory effort, b/l basilar rales and rhonchi noted, no wheeze. No accessory muscle use Cardiovascular: Tachycardic rate regular rhythm, no murmur, no edema Vessels: no JVD or carotid bruit Chest: normal inspection of chest Abdomen: normal bowel sounds, soft, nontender, no hepatosplenomegaly Musculoskeletal: no cyanosis or clubbing, extremities motor strength 5/5 Skin: no rashes, warm and dry normal turgor Neurologic: PERRL, EOMI, accommodation nl, no face palsy, no dysarthria CN's II-XI intact bilaterally and moves all extremities Psychiatric: A+Ox3, euthymic affect Lymphatic: no cervical or axillary lymphadenopathy : raul colored urine Principal Diagnosis Infective endocarditis Discharge Exam Sitting on a chair without any acute distress Constitutional well developed, well nourished, + ill appearing and + obese Eyes PERRL, conjunctivae normal, anicteric sclerae ENMT external ear and nose normal, oropharynx normal Neck trachea midline, no thyromegaly Respiratory no respiratory distress Auscultation: + diminished lung sounds and + crackles (Bibasilar crackles) Cardiovascular Rate/Rhythm: regular rate and regular rhythm; not tachycardic Heart Sounds: normal S1, normal S2 and + murmur (1/6 to 2/6 ESM over precordium) Extremities: + edema (Trace edema bilaterally) Gastrointestinal (Abdomen) Inspection/Auscultation: normal bowel sounds; abdomen not distended Percussion/Palpation: abdomen soft; abdomen nontender Neurologic normal touch/pain/proprioception Psychiatric A+Ox3, euthymic affect Lymphatic no cervical or axillary lymphadenopathy Discharge Data Allergies Allergy/AdvReac Type Severity Reaction Status Date / Time lisinopril Allergy Intermediate Cough Verified 09/16/21 11:51 morphine Allergy Intermediate Rash Verified 09/16/21 11:51 Sulfa (Sulfonamide Allergy Intermediate Rash Verified 09/16/21 11:51 Antibiotics) Tetracyclines Allergy Intermediate Gastrointestinal Verified 09/16/21 11:51 Upset Consultations 09/16/21 14:23 ED Decision to Admit Stat 09/16/21 15:05 Consult Cardiology Routine 09/17/21 09:40 Consult Infectious Diseases Routine Ordered Studies 09/16/21 12:28 CT abd pelvis IV con only Stat CT angio chest PE protocol Stat CT head/brain wo con Stat 09/18/21 10:52 MR thoracic spine wo/w con Urgent Hospital Course (1) SIRS (systemic inflammatory response syndrome): (2) Pulmonary edema: (3) Hypoxia: (4) Respiratory alkalosis: (5) Elevated troponin: (6) Generalized muscle weakness: (7) Hypomagnesemia: (8) Hypokalemia: (9) T2DM (type 2 diabetes mellitus): (10) Hypertension: This is a 66-year-old female who has significant past medical history of T2DM, HTN, HLD, GERD, fatty liver who presents to ED secondary to fever and weakness x2 days. Pt meets SIRS Criteria 2/2 to elevated temperature and tachycardia Pt also likely to have tachycardia due to missing her last two days of metoprolol Blood cultures x2 is positive for staph species Urine culture is pending She did receive broad spectrum vanco and cefepime in ED She received 2 L of IVF and now appears to be in Pulmonary edema, previous echos showed preserved function Infective endocarditis Has staph bacteremia likely secondary to infective endocarditis Echo of the heart showed-small sized apical wall motion abnormality with hypokinesis of the segments, small mobile echodensity adherent to the atrial surface of the posterior mitral valve leaflet suggestive of possible vegetation, moderate TR, estimated systolic pulmonary pressure is 58 mmHg, the interatrial septum bows toward right atrium consistent with effect elevated left atrial pressure and a SHADE has been planned Continue IV vanco/cefepime-changed to intravenous cefazolin pt with 2 days of myalgias, N, dry heaves and 1 episode of diarrhea ID has been consulted-appreciate input and recommendation MRI of the thoracic spine did not show any abnormalities Repeat transthoracic echo showed increased vegetation as below: -Limited views were obtained, there is severe mitral annular calcification, there is a large vegetation or mass of the mitral valve, mobile posterior mitral valve vegetation prolapsing into the left ventricle and left atrium, there is mild mitral regurgitation and trace due to recent regurgitation. Compared with study dated 09/17/2021 large mitral valve vegetation and trace aortic regurgitation now present Discussed with pediatric neurologist who recommended the patient should be transferred to tertiary care center for possible cardiac surgery Repeat blood culture is positive for staph aureus in clusters-PCR is positive for staph aureus and is coagulase-negative. Sensitive to oxacillin Discussed with the pharmacist and the cefazolin dose has been increased to 2 g intravenously-we will discuss with the ID specialist for further recommendation Discussed with cardiothoracic surgeon Dr. Paniagua at [facility] and the patient was accepted to be transferred Discussed with the patient and she will be transferred as soon as there will be a bed available Hypoxia Respiratory alkalosis 2/2 to hyperventilation and pulm edema Acute Pulmonary edema Volume overload received 40mg IV lasix in ED and bipap started ve[place] in place, will monitor I and O and possibly repeat a dose later this evening cardiology consulted-appreciate input and recommendation bnp [id number] We will hold off any further Lasix as per cardiology Clinically much better today Requiring 2 L of oxygen to maintain saturation Elevated troponin-NSTEMI likely demand ischemia in setting of underlying illness/pulm edema trend trops cardiology consulted, Dr. Mtz will hold off an IV heparin for now, pt is not having CP, ECG w/o ischemic change Troponin remains mildly elevated and is secondary to demand ischemia Likely has non-ST elevation AL given the echo findings Generalized weakness will need PT/OT when more medically stable Hypomagnesemia/Hypokalemia replete T2DM hold metformin Lantus/NovoLog per protocol Last A1c 6.4 on 09/01/2021 HTN hold felodipine for now continue metoprolol with dose given now due to missed dose last 2 days DVT ppx: SQ Lovenox Dispo: PCU FULL CODE PCP: Nemesio She will be transferred to [facility] this afternoon Total Time Total Time Spent Total Time Spent (In Minutes): 45 minutes Discharge Plan Discharge Items Patient Disposition: Transfer Acute Care Hospital Reason For Visit: PULMONARY EDEMA, SIRS Discharge Diagnosis: Infective endocarditis Condition on Discharge: Fair Activity: Resume your previous activity Non-emergency contact: Primary Care Provider Call non-emergency contact if: you have any medication questions and your symptoms worsen Follow-up/Referrals: Xi Herr DO [Primary Care Provider] - (Please make an appointment with your PCP within 7 days following discharge from the facility) Diet Comment: N.p.o. for now Addtl Attending Provider Instructions: She was transferred to [facility] for continued halfway medications are continued but the patient is getting medications as below- All of her inpatient medications are continued as below: Current Inpatient Medications Acetaminophen (Acetaminophen 325 Mg Tab) 650 mg PO Q4H PRN PRN Reason: Pain or Fever Stop: 10/16/21 16:41 Last Admin: 09/19/21 08:21 Dose: 650 mg Documented by: Al Hydrox/Mg Hydrox/Simethicone (Aluminum/Magnesium Susp 30 Ml Udc) 15 ml PO Q4H PRN PRN Reason: Dyspepsia Stop: 10/16/21 16:41 Aspirin (Aspirin 81 Mg Ectab) 81 mg PO QAM [facility] Stop: 10/17/21 08:59 Last Admin: 09/19/21 08:22 Dose: 81 mg Documented by: Atorvastatin Calcium (Atorvastatin 40 Mg Tab) 40 mg PO DAILY [facility] Stop: 10/17/21 08:59 Last Admin: 09/19/21 08:22 Dose: 40 mg Documented by: Azelastine HCl (Azelastine Hcl 0.1% Nasal 200 Sprays/27,400 Mcg Btl) 1 sprays NA BID [facility] Stop: 10/16/21 20:59 Last Admin: 09/19/21 08:22 Dose: 1 sprays Documented by: Cetirizine HCl (Cetirizine Hcl 10 Mg Tablet) 10 mg PO QAM [facility] Stop: 10/17/21 08:59 Last Admin: 09/19/21 08:22 Dose: 10 mg Documented by: Dextrose (Dextrose 50% 50 Ml Syringe) 25 - 50 ml IV UD PRN; Protocol PRN Reason: Hypoglycemia Protocol Stop: 10/16/21 16:41 Enoxaparin Sodium (Enoxaparin Inj 40 Mg/0.4 Ml Syr) 40 mg SQ Q24H NANCY Stop: 10/16/21 21:59 Last Admin: 09/18/21 21:04 Dose: 40 mg Documented by: Fluoxetine HCl (Fluoxetine Hcl 20 Mg Cap) 40 mg PO QAM NANCY Stop: 10/17/21 08:59 Last Admin: 09/19/21 08:21 Dose: 40 mg Documented by: Furosemide (Furosemide 40 Mg/4 Ml Vial) 40 mg IV DAILY NANCY Stop: 10/17/21 08:59 Last Admin: 09/18/21 08:16 Dose: 40 mg Documented by: Glucagon (Glucagon For Inj 1 Mg Vial) 1 mg SQ UD PRN; Protocol PRN Reason: Hypoglycemia Protocol Stop: 10/16/21 16:41 Glucose (Glucose 10 Tabs/Tube) 4 - 8 tabs PO UD PRN; Protocol PRN Reason: Hypoglycemia Protocol Stop: 10/16/21 16:41 Glucose (Glucose 40% Gel 15 Gm Tube) 15 - 30 gm PO UD PRN; Protocol PRN Reason: Hypoglycemia Protocol Stop: 10/16/21 16:41 Cefazolin Sodium (Ancef 2000mg) 2,000 mg in 15 mls @ 3.75 mls/min IV Q8H NANCY Stop: 10/31/21 09:59 Insulin Aspart (Insulin Aspart Per Unit) 0 units SC ACHS NANCY Stop: 10/16/21 16:41 Last Admin: 09/19/21 08:54 Dose: Not Given Documented by: Insulin Glargine (Insulin Glargine Solostar 100 Units/Ml 3 Ml Pen) 0 - 10 units SC BID NANCY Stop: 10/16/21 20:59 Last Admin: 09/19/21 08:59 Dose: Not Given Documented by: Magnesium Hydroxide (Magnesium Hydroxide Susp 30 Ml Udc) 30 ml PO Q12H PRN PRN Reason: Constipation Stop: 10/16/21 16:41 Metoprolol Succinate (Metoprolol Succ 50mg Ext Rel Tab) 50 mg PO QAM NANCY Stop: 10/16/21 16:59 Last Admin: 09/19/21 08:21 Dose: 50 mg Documented by: Miscellaneous (Carbohydrates For Hypoglycemia ) 15 - 30 gm PO UD PRN PRN Reason: Hypoglycemia Protocol Stop: 10/16/21 16:41 Montelukast Sodium (Montelukast Sodium 10 Mg Tablet) 10 mg PO DAILY NANCY Stop: 10/17/21 08:59 Last Admin: 09/19/21 08:21 Dose: 10 mg Documented by: Ondansetron HCl (Ondansetron Inj 2 Mg/Ml 2 Ml Vial) 4 mg IV Q6H PRN PRN Reason: Nausea Stop: 10/16/21 16:41 Pantoprazole Sodium (Pantoprazole 40 Mg Tab) 40 mg PO BID NANCY Stop: 10/16/21 20:59 Last Admin: 09/19/21 08:21 Dose: 40 mg Documented by: Polyethylene Glycol (Polyethylene (Miralax) 17 Gm Pack) 17 gm PO DAILY PRN PRN Reason: Constipation Stop: 10/16/21 16:41 Pending Studies at Discharge: No Stand-Alone Forms: [facility] Skilled Items Patient informed of condition?: Yes DNR: No Discharge Level of Care: Other Communicable Disease: No Discharge Prognosis: Stable Lines: None Urinary Catheter: No Medications and DC Order Prescriptions: Continued fluoxetine 40 mg Capsule 40 mg PO QAM RF: 0 cetirizine 10 mg Tablet 10 mg PO QAM RF: 0 metoprolol succinate 50 mg Tablet Extended Release 24 Hr 50 mg PO QAM RF: 0 felodipine 5 mg Tablet Extended Release 24 Hr 5 mg PO QAM RF: 0 pantoprazole [Protonix] 40 mg Tablet,Delayed Release (Dr/Ec) 40 mg PO BID RF: 0 azelastine 137 mcg (0.1 %) Aerosol,[place] 1 spray INTRANASAL BID RF: 0 fluticasone propionate 50 mcg/actuation [place],Suspension 1 - 2 spray INTRANASAL DAILY RF: 0 aspirin 81 mg Tablet,Delayed Release (Dr/Ec) 81 mg PO QAM RF: 0 acetaminophen [Tylenol Extra Strength] 500 mg Tablet 1,000 mg PO Q6H PRN (Reason: Headache or pain) RF: 0 atorvastatin 40 mg tablet 40 mg PO DAILY RF: 0 Premarin 0.625 mg/gram cream 1 applic vaginal 2XWK RF: 0 metformin 1,000 mg tablet 1,000 mg PO BID RF: 0 montelukast 10 mg tablet 10 mg PO DAILY RF: 0 Discharge Orders: Discharge Order (Routine); Ordered 09/19/21 Ordered By: Conner Smyth Admission Data Admit Date/Time: 09/16/21 15:05 Attending Provider: Conner Smyth Admit Provider: Geri Aguirre Primary Care Provider: Xi Herr Other Providers: Geri Aguirre ; Marv Mtz ; Silviano Lindquist ; Naomi Donald ; Jignesh Bang I. ; Taj Jonas II ; Ana Maria Vargas ; Frantz Rivers ; Santo Jerry
[2021-09-19] MEDS: ENOXAPARIN INJ 40 MG/0.4 ML SYR SQ SCH (21:01)
[2021-09-19] MEDS ORDERED: ALBUMIN 25% 100 mL 25 GM/100 ML VIAL IV ONE (22:56)
--- NOTE | 2021-09-19 22:59 | Communication Note ---
Date of Service: September 19, 2021
--- NOTE | 2021-09-19 22:59 | Communication Note ---
Date of Service: September 19, 2021 Overnight developments : 1045 PM Made aware by RN of patient talking hollie. Patient last known to be well around 9 PM at time of Lovenox subcutaneous ad ministration as per RN. Patient denies headache, chest pain, SOB. PPE Aphasic No obvious facial asymmetry BUE/BLE MMTs 4/[address] head initial read Mild brain volume loss. No mass, hemorrhage or acute infarct. Sinuses, mastoids and bones are intact. Comparison 2021. Impression:No acute findings Case discussed with [facility] telestroke specialist (Dr. Contreras). TPA not recommended due to endocarditis. He recommends CT angio of the head and neck as additional studies. CT angio head initial read : Mild atherosclerosis of the cavernous carotid arteries. Right MCAis intact. Left MCAM1 segment intact. There is a proximal left MCAbranch vessel which is not well opacified series 3 image 102 closelyopposed to the anterior insular cortex. Its distal segments are fairlywell-opacified. The length of the presumed segmental occlusion is approximately3.5 mm. Right vertebral arteryintact. Distal left vertebral arteryoccluded. Focal calcification at the occlusion site. Basilar arteryis intact. belt repairer are intact. Impression: Short segment proximal left MCAM2 branch vessel occlusion. Acute versus chronic occlusion of the left vertebral artery. CT angio neck initial read: Aortic arch intact. The right carotids are intact. Minimal atherosclerotic disease at the left carotid bulb. The vertebral arteries are intact. Upper lung briggs are clear. Multiple small nodes in the mediastinum. DJD. Impression:No acute findings. CT angio head results communicated to Dr. Contreras. He recommends contacting [facility] neurologist on-call for consideration for intervention insofar as patient had already been accepted by [facility] Cardiology service (Dr. Marv Galo ) for management of infective endocarditis pending bed availability. Case discussed with Dr. Rivera ([facility] neurologist) and Dr. Gutierrez ([facility] neurointervention specialist). Emergent transfer recommended. Patient to transfer via [facility]. Patient accepted for transfer by [facility] ICU (Dr. Dasilva). Attempted to contact patient's son (Mr. Frantz Reyes, [phone]) over the phone to update him of developments. No answer. Left message for call back. Text document was generated using Dragon voice recognition software. It may contain grammatical or spelling errors. Kindly contact undersigned for clarification of any documentation item in question.
[2021-09-19 23:37] LABS: BUN Creatinine Ratio 30.2 (10-20); Calcium 8.1 mg/dl (8.5-10.1); Est GFR (African American) 114.7 ml/min; Est GFR (Non-African American) 98.9 ml/min; Potassium 3.6 mmol/L (3.5-5.1)
[2021-09-19 23:53] LABS: Partial Thromboplastin Ratio 1.1; Partial Thromboplastin Time 28.9 Seconds (21.0-31.0)
[2021-09-20] MEDS ORDERED: OPTIRAY 320 125ml IV ONE (00:24)
[2021-09-20] MEDS: ACETAMINOPHEN 325 MG TAB PO PRN (00:27)
[2021-09-20] MEDS: ceFAZolin 2000MG 2,000 MG/15 ML SYR IV SCH (01:44)
--- NOTE | 2021-09-20 06:28 | CT Scan Report ---
CT head/brain wo con CLINICAL HISTORY: stroke alert . Slurred speech and weakness COMPARISON STUDY: 09/16/2021 CT DOSE: 537.48 mGy.cm TECHNIQUE: Standard CT of the Brain was performed without IV contrast. A dose lowering technique was utilized adhering to the principles of ALARA. FINDINGS: Extraaxial space: There is no evidence for subdural hematoma. There are no extra-axial fluid collecti ons. Ventricles and cisterns: The ventricles are normal in size and configuration. There is no evidence fo r midline shift or mass effect. Parenchyma: There is no subarachnoid or intraparenchymal hemorrhage. There is no evidence for an acut e infarct or cerebral edema. There again decreased attenuation in the periventricular white matter re presenting remote small vessel disease. There are no gross mass lesions. Osseous structures: There is no evidence for an acute fracture. The visualized paranasal sinuses are clear. The mastoid air cells are clear bilaterally. Soft tissues: There is no evidence for focal soft tissue swelling. IMPRESSION: 1. No acute intracerebral pathology. 2. There is again evidence for mild remote small vessel disease. ACT 112: Negative or not required by law. Electronically signed by: Oumar Woodall M.D. 09/20/2021 6:26 AM
--- NOTE | 2021-09-20 07:34 | CT Scan Report ---
CT angio neck with con, CT angio head w con CLINICAL HISTORY: 66 years-old Female with aphasia. Acute strokelike symptoms COMPARISON STUDY: Head CT 09/19/2021 TECHNIQUE: Following the IV administration of 118 mL of Optiray, CT angiogram of the head and neck wa s performed from the aortic arch to the skull apex. Images are reviewed in the axial, sagittal, and c oronal planes. 3-D MIPS images are created and assessed. IV contrast was administered without complic ation. All measurements were calculated based on NASCET criteria. A dose lowering technique was util ized adhering to the principles of ALARA. CT DOSE: 590.08 mGy.cm FINDINGS: Three-vessel morphology of the thoracic aortic arch with mild atherosclerosis. Patency of the innomin ate and imaged subclavian arteries. The common carotid arteries are patent. There is mild atheroscler osis of the carotid bulbs without high-grade stenosis. Respiratory motion artifact limits the study. There is additional atherosclerotic plaque of the cavernous, clinoid and supraclinoid segments of the internal carotid arteries without high-grade stenosis. Mild to moderate multifocal luminal narrowing of the middle cerebral arteries. There is a focal 6 mm segment of occlusion versus near occlusive hi gh-grade stenosis involving a left M2 branch within the sylvian fissure with distal reconstitution se en within the inferior branches, image 103 of series 3. Distal to this there is high-grade stenosis i nvolving branches of the adjacent M3 segment. The anterior cerebral arteries are patent. The right ve rtebral artery is patent. Developmentally diminutive left vertebral artery. There is age-indeterminat e occlusion of the V4 segment left vertebral artery. The basilar and posterior cerebral arteries are patent. Cerebral venous sinuses are patent. There is no abnormal intracranial enhancement. Nonspecific groundglass opacities are noted within the lung apices. No pneumothorax. Unremarkable sof t tissues. Degenerative changes of the cervical spine. Prior bilateral lens repair. IMPRESSION: 1. Occlusion involves one of the left M2 branches of the middle cerebral artery with distal reconstit ution of flow within the M3 branches. 2. Age-indeterminate occlusion of the V4 segment of the left vertebral artery. 3. Mild atherosclerosis of the carotid bulbs results in less than 50% stenosis bilaterally. ACT 112: Negative or not required by law. The above report was generated using voice recognition software. It may contain grammatical, syntax o r spelling errors. Electronically signed by: Ken Harrington M.D. 09/20/2021 7:32 AM
[2021-09-22 03:02] LABS: Babesia microti DNA Not Detected (Not Detected)
[2021-09-23 07:08] LABS: Ehrlichia chaff DNA Bld Negative (Negative)
== END 2021-09-20 03:00 | disposition short-term general hospital (02) | DRG 871 ==
LOC: ED 09:27 → 2S 15:05 → SUATTDRO 15:05 → 2S 18:21 → 1E 09-19 23:39 → 2S 09-20 00:24